=== PATIENT | female | born 1975 | race Caucasian/White ===

== ENCOUNTER 2020-09-14 07:01 | Observation (INO) | payer OTHER, SELFPAY ==
[2020-09-14] VITALS (12 sets, daily range): BP systolic 100–157; BP diastolic 58–85; PULSE 56–75; RESP 14–18; TEMP 35.5–36.5; O2SAT 97–100; BMI 23.3
--- NOTE | ~2020-09-14 | US_ITS ---
EXAMINATION: PELVIC ULTRASOUND CLINICAL INFORMATION: Right lower quadrant pain COMPARISON: Previous CT from earlier the same day and previous pelvic ultrasound October 2018 TECHNIQUE: Transabdominal and transvaginal pelvic ultrasound was performed. Transabdominal imaging of the right lower quadrant/appendix was also performed FINDINGS: The uterus is anteverted and measures 6.9 x 4 x 4.6 cm in dimension. There is a 5 mm hypoechoic lesion in the posterior uterine body questionable for a small fibroid. This was not appreciated on previous. Endometrial thickness is normal measuring 0.5 cm. The cervix is normal appearing. The right ovary is normal-appearing and measures 2.6 x 1.8 x 1.7 cm. The left ovary is normal-appearing and measures 2.3 x 1.6 x 1.8 cm. There is a 1.1 cm simple cyst or follicle in the left ovary. There is no fluid in the pelvis. There is a hypoechoic tubular structure in the right lower quadrant. This measures up to 1.2 cm in diameter. This is noncompressible. No increased vascularity is seen. The mechanical technologist reports the patient is tender over this region and ultrasound appearance is suggestive of acute appendicitis. No periappendiceal fluid is seen. US/US pelvic and transvaginal IMPRESSION: Normal pelvic ultrasound. Acute appendicitis. Findings were discussed with Dr. Mcgill by telephone on 09/14/2020 at 11:40 AM.
--- NOTE | ~2020-09-14 | CT_ITS ---
EXAMINATION: CT ABDOMEN AND PELVIS WITHOUT CONTRAST CLINICAL INFORMATION: Right-sided pain COMPARISON: Previous CT scan of the abdomen and pelvis most recent October 2018 and most recent pelvic ultrasound October 2018 TECHNIQUE: Multidetector volumetric imaging was performed from the superior aspect of the liver through the pubic symphysis. Sagittal and coronal reformatted images were obtained on the technologist's workstation. This CT examination was performed using dose optimization techniques as appropriate, variously including the following: *Automated exposure control *Adjustment of mA and/or kV according to patient size (this includes techniques or standardized protocols for targeted exams where dose is matched to indication/reason for exam; i.e. extremities or head) *Use of iterative reconstruction technique DLP: 490 mGy-cm FINDINGS: LUNG BASES: The visualized lung bases are unremarkable. LIVER, GALLBLADDER, AND BILIARY TREE: The liver is normal in size, shape, and attenuation. No focal hepatic lesion or biliary ductal dilatation is present. The gallbladder is unremarkable with no evidence of radiopaque gallstones, gallbladder wall thickening, or obvious pericholecystic inflammatory changes. PANCREAS: Unremarkable. SPLEEN: Unremarkable. ADRENAL GLANDS: Unremarkable. KIDNEYS AND URETERS: The kidneys are normal in size, shape, and attenuation. No hydronephrosis, hydroureter, or calculi seen. No perinephric stranding. BLADDER: Unremarkable. GASTROINTESTINAL TRACT: The small and large bowel are unremarkable. The appendix is unremarkable. ABDOMINAL WALL: There is a soft tissue nodule in the right lateral abdominal wall measuring 0.8 x 1.2 cm axial image 30 series 3. Similar to previous CT October 2018 and therefore probably benign. No hernia. LYMPH NODES: Normal. VASCULAR: Unremarkable. PELVIC VISCERA: Unremarkable. OSSEOUS STRUCTURES: There is degenerative disc disease at L5-S1. CT/CT abdomen pelvis wo con IMPRESSION: No acute findings. Stable nodule in the subcutaneous fat of the right lateral abdominal wall October 2018
--- NOTE | 2020-09-14 07:15 | ED.ABDPAIN ---
HPI - Abdominal Pain General Chief Complaint: Abdominal Pain Stated Complaint: abdominal pain since early skyler resendiz Time Seen by Provider: 09/14/20 07:15 Source: patient Mode of arrival: ambulatory Limitations: no limitations History of Present Illness MD elicited complaint: abdominal pain and flank pain Pertinent past history: other (ovarian cysts) Onset (ago): day(s) (started today 1am) Pain Consistency: constant Location: RLQ and R flank Severity: severe Quality: stabbing Radiation: RLQ Migration to: no migration Exacerbating factors: nothing Relieving factors: nothing Associated symptoms: nausea, vomiting and diarrhea Related Data Allergies Allergy/AdvReac Type Severity Reaction Status Date / Time No Known Allergies Allergy Unverified 12/25/19 15:59 Review of Systems Review of Systems Constitutional : No Weight loss, No Fever, No Chills ENT/Mouth : No sore throat, No Rhinorrhea Eyes: No Swelling, No Redness Cardiovascular : No Chest Pain, No SOB, NoEdema Respiratory : No Cough, No Sputum, No Wheezing Gastrointestinal : Positive Nausea, Positive Vomiting, positive Diarrhea, positive abdominal Pain, No Hematochezia, No Melena Genitourinary : No Dysuria, No Urinary Frequency, No Hematuria, No Urgency, pos hesitancy Musculoskeletal : No joint pain, No Myalgias, No Joint Swelling Skin : No Skin Lesions, No rash Neuro : No Weakness, No Numbness, No Dizziness, No Headache Psych : No Anxiety/Panic, No Depression Heme/Lymph: No Bruising, No Lymphadenopathy Endocrine : No Polyuria, No Polydipsia All other systems reviewed and are negative. Physical Exam Vital Signs: Vital Signs: Last Vital Signs Pulse 61 09/14/20 07:20 Resp 18 09/14/20 10:27 BP 157/70 H 09/14/20 07:20 Pulse Ox 98 09/14/20 07:20 Body Mass Index 23.3 Appearance: Alert. Oriented X3. in pain mild acute distress Eyes: Pupils equal, round and reactive to light. ENT: Pharynx normal. Neck: Normal inspection. Neck supple. CVS: Normal heart rate and rhythm. Pulses normal. Respiratory: No respiratory distress. Breath sounds normal. Abdomen: Soft and moderate ttp in RLQ no rebound or guarding Back: mild CVA ttp R side Skin: Skin warm and dry. pale skin color. Normal skin turgor. Extremities: No lower extremity edema. No calf ttp Neuro: Oriented X 3. No motor deficit. No sensory deficit. Course Course Course Narrative: urine, labs, CT scan negative, US at this ordered for ovarian cyst - no acute findings, need for repeat pain medications call from Radiology - on CT scan normal but on US appendicitis noncompressible enlarged at the base no WBC count HR in 60s sfebrile no signs of severe sepsis at this time 1136am call to surgery 1137am MDM - Abdominal Pain MDM Narrative Medical decision making narrative: 44 yo female with hx of ovarian cysts comes in with abrupt R sided abdominal pain and n/v - at this time overall abdomen has mild ttp suspect stone vs appendicits vs cyst though stone seems more likely, labs, UA, CT scan for acute findings in differential, IV morphine and toradol for pain dispo per results and findings. Differential Diagnosis Differential diagnosis: Likely abdominal pain, acute appendicitis, calculus of kidney, ovarian cyst and renal colic Lab Data Result diagrams: 09/14/20 07:31 09/14/20 07:31 Labs: Lab Results 09/14/20 09/14/20 09/14/20 Range/Units 07:31 07:31 08:42 WBC 10.0 (4.8-10.8) X10*3/uL RBC 4.41 (4.20-5.50) X10*6/uL Hgb 13.9 (12.0-16.0) g/dl Hct 40.6 (37-47) % MCV 92.1 (80-98) fL MCH 31.5 (27.0-33.0) pg MCHC 34.2 (31.0-35.0) g/dl RDW 12.8 (11.0-16.0) % Plt Count 272 (160-400) X10*3/uL MPV 9.1 L (9.4-12.3) fL Immature Gran % (Auto) 0.4 (0.0-0.4) % Neut % (Auto) 76.3 H (45-73) % Lymph % (Auto) 15.0 L (20-40) % [place] % (Auto) 6.1 (2-11) % Eos % (Auto) 1.8 (0-4) % Baso % (Auto) 0.4 (0-2) % Lymph # (Auto) 1.5 (1.2-4.9) X10*3/uL [place] # (Auto) 0.6 (0.1-1.2) X10*3/uL Eos # (Auto) 0.2 (0.0-0.4) X10*3/uL Baso # (Auto) 0.0 (0.0-0.2) X10*3/uL Abs Immat Gran (auto) 0.04 H (0.00-0.03) X10*3/uL Absolute Neuts (auto) 7.6 (2.0-8.3) X10*3/uL Absolute Nucleated RBC 0.000 (0.0-0.012) X10*3/uL Nucleated RBC % (auto) 0.0 (0.0-0.2) /100WBC Sodium 140 (135-145) mmol/L Potassium 4.2 (3.3-5.1) mmol/L Chloride 107 (96-108) mmol/L Carbon Dioxide 22 (22-29) mmol/L Anion Gap 15 (12-20) BUN 15 (9-16) mg/dL Creatinine 0.72 (0.5-1.4) mg/dL Estim Creat Clear Calc 95.3 Estimated GFR > 60 Random Glucose 107 (60-115) mg/dL Calcium 9.3 (8.4-10.2) mg/dL Magnesium 2.0 (1.6-2.6) mg/dL Total Bilirubin 0.9 (0.0-1.0) mg/dL Direct Bilirubin 0.3 (0.0-0.5) mg/dL AST 17 (5-31) U/L ALT 21 (0-31) U/L Alkaline Phosphatase 68 (39-117) U/L Total Protein 6.9 (6.5-8.0) g/dL Albumin 4.4 (3.5-5.0) g/dL Lipase 26 (8-78) U/L Urine Color YELLOW Urine Appearance CLEAR Urine pH 6.0 (5.0-8.0) Ur Specific [place] <= 1.005 (1.005-1.025) Urine Protein NEG (NEG-TRACE) MG/DL Urine Glucose (UA) NEG (NEG) MG/DL Urine Ketones NEG (NEG) MG/DL Urine Blood NEG (NEG) Urine Nitrite NEG (NEG) Ur Leukocyte Esterase NEG (NEG) Urine Test (NEGATIVE) 09/14/20 Range/Units 08:42 WBC (4.8-10.8) X10*3/uL RBC (4.20-5.50) X10*6/uL Hgb (12.0-16.0) g/dl Hct (37-47) % MCV (80-98) fL MCH (27.0-33.0) pg MCHC (31.0-35.0) g/dl RDW (11.0-16.0) % Plt Count (160-400) X10*3/uL MPV (9.4-12.3) fL Immature Gran % (Auto) (0.0-0.4) % Neut % (Auto) (45-73) % Lymph % (Auto) (20-40) % [place] % (Auto) (2-11) % Eos % (Auto) (0-4) % Baso % (Auto) (0-2) % Lymph # (Auto) (1.2-4.9) X10*3/uL [place] # (Auto) (0.1-1.2) X10*3/uL Eos # (Auto) (0.0-0.4) X10*3/uL Baso # (Auto) (0.0-0.2) X10*3/uL Abs Immat Gran (auto) (0.00-0.03) X10*3/uL Absolute Neuts (auto) (2.0-8.3) X10*3/uL Absolute Nucleated RBC (0.0-0.012) X10*3/uL Nucleated RBC % (auto) (0.0-0.2) /100WBC Sodium (135-145) mmol/L Potassium (3.3-5.1) mmol/L Chloride (96-108) mmol/L Carbon Dioxide (22-29) mmol/L Anion Gap (12-20) BUN (9-16) mg/dL Creatinine (0.5-1.4) mg/dL Estim Creat Clear Calc Estimated GFR Random Glucose (60-115) mg/dL Calcium (8.4-10.2) mg/dL Magnesium (1.6-2.6) mg/dL Total Bilirubin (0.0-1.0) mg/dL Direct Bilirubin (0.0-0.5) mg/dL AST (5-31) U/L ALT (0-31) U/L Alkaline Phosphatase (39-117) U/L Total Protein (6.5-8.0) g/dL Albumin (3.5-5.0) g/dL Lipase (8-78) U/L Urine Color Urine Appearance Urine pH (5.0-8.0) Ur Specific [place] (1.005-1.025) Urine Protein (NEG-TRACE) MG/DL Urine Glucose (UA) (NEG) MG/DL Urine Ketones (NEG) MG/DL Urine Blood (NEG) Urine Nitrite (NEG) Ur Leukocyte Esterase (NEG) Urine Test NEGATIVE (NEGATIVE) Critical Care Time Critical Care Time Critical Care Time: Yes Total Critical Care Time: 35 Attestation: repeat pain medications, call to surgery with medical consult, IV antibiotics I attest to this time spent taking care of the patient Discharge Plan Discharge Clinical Impression: Abdominal pain Qualifiers: Abdominal location: right lower quadrant Qualified Code(s): R10.31 - Right lower quadrant pain Acute appendicitis Qualifiers: Acute appendicitis type: with localized peritonitis Appendicitis gangrene presence: without gangrene Appendicitis perforation presence: without perforation Appendicitis abscess presence: without abscess Qualified Code(s): K35.30 - Acute appendicitis with localized peritonitis, without perforation or gangrene Patient Disposition: Admitted As Inpatient [facility] Past Medical History Attestation statement: The following information was validated with the patient. Medical History (Updated 09/14/20 @ 11:37 by Nikia Mcgill DO) Ovarian cyst Social History Social History (Updated 09/14/20 @ 07:34 by Nikia Mcgill DO) Alcohol intake: never Patient Tobacco Use Status: Never used Tobacco Use of substances other than those prescribed or required for medical reasons: No Advance Directives: No Advance Directives Information Provided: No Patient : No
[2020-09-14] MEDS: 0.9 % Sodium Chloride 1,000 ML 999 ML IVCONT (07:32)
[2020-09-14] MEDS: Ketorolac Tromethamine 30 MG/ML VIAL IVPUSH (07:33)
[2020-09-14] MEDS: Morphine Sulfate 4 MG/ML CARTRIDGE IVPUSH (07:33)
[2020-09-14] MEDS: ondansetron HCL 4 MG/2 ML VIAL IVPUSH (07:34)
[2020-09-14 07:35] LABS: MANUAL DIFF FLAG NO
[2020-09-14 07:36] LABS: Basophils Percent Auto 0.4 % (0-2); Eosinophils Absolute Auto 0.2 X10*3/uL (0.0-0.4); Eosinophils Percent Auto 1.8 % (0-4); Hematocrit 40.6 % (37-47); Hemoglobin 13.9 g/dl (12.0-16.0); Imm Gran Abs Auto 0.04 X10*3/uL (0.00-0.03); Imm Gran Pct Auto 0.4 % (0.0-0.4); Lymphocytes Absolute Auto 1.5 X10*3/uL (1.2-4.9); Mean Corpuscular HGB Conc 34.2 g/dl (31.0-35.0); Mean Corpuscular Hemoglobin 31.5 pg (27.0-33.0); Mean Corpuscular Volume 92.1 fL (80-98); Mean Platelet Volume 9.1 fL (9.4-12.3); Monocytes Absolute Auto 0.6 X10*3/uL (0.1-1.2); Monocytes Percent Auto 6.1 % (2-11); Neutrophils Absolute Auto 7.6 X10*3/uL (2.0-8.3); Neutrophils Percent Auto 76.3 % (45-73); Platelet Count 272 X10*3/uL (160-400); Red Blood Count 4.41 X10*6/uL (4.20-5.50); Red Cell Distribution Width 12.8 % (11.0-16.0)
[2020-09-14 08:03] LABS: Alanine Aminotransferase 21 U/L (0-31); Albumin Level 4.4 g/dL (3.5-5.0); Alkaline Phosphatase 68 U/L (39-117); Anion Gap 15 (12-20); Aspartate Amino Transferase 17 U/L (5-31); Bilirubin Direct 0.3 mg/dL (0.0-0.5); Bilirubin Total 0.9 mg/dL (0.0-1.0); Blood Urea Nitrogen 15 mg/dL (9-16); Calcium 9.3 mg/dL (8.4-10.2); Carbon Dioxide 22 mmol/L (22-29); Chloride 107 mmol/L (96-108); Creatinine Clr Calc Pharmacy 95.3; Estimated Glomerular Filt Rate > 60; Glucose Random 107 mg/dL (60-115); Lipase 26 U/L (8-78); Potassium 4.2 mmol/L (3.3-5.1); Sodium 140 mmol/L (135-145); Total Protein 6.9 g/dL (6.5-8.0)
[2020-09-14 08:49] LABS: Appearance Urine CLEAR; Color Urine YELLOW; Glucose Urine UA NEG (NEG); Leukocyte Esterase Urine NEG (NEG); Nitrite Urine NEG (NEG); Specific Gravity - Urine <= 1.005 (1.005-1.025); Urine Blood NEG (NEG); Urine Ketones NEG (NEG); Urine Protein NEG (NEG-TRACE)
[2020-09-14 09:40] LABS: UPreg QC Valid YES; Urine Pregnancy NEGATIVE (NEGATIVE)
[2020-09-14] MEDS: HYDROmorphone HCl 1 MG/ML SYRINGE IVPUSH (10:27)
[2020-09-14] MEDS: Piperacillin Sodium/Tazobactam 3.375 GM in 0.9 % Sodium Chloride 50 ML IV (11:46)
[2020-09-14] MEDS: LORazepam 2 MG/ML VIAL 1 MG IVPUSH (11:50)
--- NOTE | 2020-09-14 12:11 | HE.PHANOTE ---
Pharmacy Consult ? Medication Reconciliation Pharmacy has completed the medication reconciliation and there were no significant medication issues requiring provider attention. Josiane LarsenD
--- NOTE | 2020-09-14 13:48 | HO.ANESPROP2 ---
FORMERLY [facility], [facility] Active Problems Active Problems: All Active Problems (Updated 09/14/20 @ 11:37 by Nikia Mcgill DO) Abdominal pain (Acute) Acute appendicitis (Acute) Past Medical History Medical History Ovarian cyst Social History Social History Alcohol intake: never Patient Tobacco Use Status: Never used Tobacco Use of substances other than those prescribed or required for medical reasons: No Advance Directives: No Advance Directives Information Provided: No Patient : No Meds Allergies Allergy/AdvReac Type Severity Reaction Status Date / Time No Known Allergies Allergy Verified 09/14/20 13:45 Active Medications: Current Medications Generic Name Dose Route Start Last Admin Trade Name Freq PRN Reason Stop Dose Admin Cefotetan Disodium 2 gm/ 50 mls @ 100 mls/hr 09/14/20 13:38 Sodium Chloride IV 09/14/20 14:07 PREOP ONE Pharmacy Consult 1 each 09/14/20 11:36 Consult Rx Perform Med Rec MISCELLANE ONCE PRN Consult order Home Medications Medication Instructions Recorded Confirmed Last Taken Type cetirizine-pseudoephedrine 1 tab PO DAILY PRN 09/14/20 09/14/20 Unknown History [Zyrtec-D] Exam Exam Date and Time: September 14, 2020 1348 Height,Weight and Vital Signs: Height 5 ft 6 in Weight 65.771 kg Last Vital Signs Pulse 61 09/14/20 13:39 Resp 16 09/14/20 13:39 BP 131/64 09/14/20 13:39 Pulse Ox 98 09/14/20 13:39 Pertinent Lab Results Pertinent Lab Results: Laboratory Tests 09/14/20 09/14/20 09/14/20 07:31 07:31 08:42 WBC 10.0 RBC 4.41 Hgb 13.9 Hct 40.6 MCV 92.1 MCH 31.5 MCHC 34.2 RDW 12.8 Plt Count 272 MPV 9.1 L Immature Gran % (Auto) 0.4 Neut % (Auto) 76.3 H Lymph % (Auto) 15.0 L [place] % (Auto) 6.1 Eos % (Auto) 1.8 Baso % (Auto) 0.4 Lymph # (Auto) 1.5 [place] # (Auto) 0.6 Eos # (Auto) 0.2 Baso # (Auto) 0.0 Abs Immat Gran (auto) 0.04 H Absolute Neuts (auto) 7.6 Absolute Nucleated RBC 0.000 Nucleated RBC % (auto) 0.0 Sodium 140 Potassium 4.2 Chloride 107 Carbon Dioxide 22 Anion Gap 15 BUN 15 Creatinine 0.72 Estim Creat Clear Calc 95.3 Estimated GFR > 60 Random Glucose 107 Calcium 9.3 Magnesium 2.0 Total Bilirubin 0.9 Direct Bilirubin 0.3 AST 17 ALT 21 Alkaline Phosphatase 68 Total Protein 6.9 Albumin 4.4 Lipase 26 Urine Color YELLOW Urine Appearance CLEAR Urine pH 6.0 Ur Specific [place] <= 1.005 Urine Protein NEG Urine Glucose (UA) NEG Urine Ketones NEG Urine Blood NEG Urine Nitrite NEG Ur Leukocyte Esterase NEG Urine Test 09/14/20 08:42 WBC RBC Hgb Hct MCV MCH MCHC RDW Plt Count MPV Immature Gran % (Auto) Neut % (Auto) Lymph % (Auto) [place] % (Auto) Eos % (Auto) Baso % (Auto) Lymph # (Auto) [place] # (Auto) Eos # (Auto) Baso # (Auto) Abs Immat Gran (auto) Absolute Neuts (auto) Absolute Nucleated RBC Nucleated RBC % (auto) Sodium Potassium Chloride Carbon Dioxide Anion Gap BUN Creatinine Estim Creat Clear Calc Estimated GFR Random Glucose Calcium Magnesium Total Bilirubin Direct Bilirubin AST ALT Alkaline Phosphatase Total Protein Albumin Lipase Urine Color Urine Appearance Urine pH Ur Specific [place] Urine Protein Urine Glucose (UA) Urine Ketones Urine Blood Urine Nitrite Ur Leukocyte Esterase Urine Test NEGATIVE Airway Mallampati Class: II TM Dist: >3cm Neck ROM: Full Assessment and Plan Assessment Anesthesia Assessment: Anesthesia Plan Discussed and Chart Reviewed Final Anesthetic Review NPO: Yes ASA Class: I and Emergency Final Preanesthetic Review: No Changes in Pt Med Stat, Meds/Allgs Chart Reviewed, Consent Obtained/Reviewed and Anes Risks/Benef Reviewed Patient Risk: Low Procedure Risk: Low Assessment/Block/Sedation in SS: Assess/Block/Sedation- Anesthetic Plan Anesthetic Plan: GA Disposition: Standard PACU
[2020-09-14 13:56] LABS: COVID-19 Test Negative (Negative)
--- NOTE | 2020-09-14 13:56 | P.HPGS_ITS ---
History of Present Illness History of Present Illness Date of Service: 09/14/20 Chief complaint: abdominal pain since early skyler resendiz Narrative: Josefina Ty is a 44 year old female otherwise healthy, who came to the emergency room this morning because of right lower quadrant pain. She says this woke her up from sleep at around 01:30 in the morning earlier today. She said this had persisted throughout the rest of the morning. She had some nausea and 1 small episode of vomiting prior to coming to the ER. She denies any diarrhea or constipation or any other GI complaints. She denies any previous similar episodes in the past She denies any fever or chills or dysuria. She had a CAT scan done in the ER which did not reveal any acute intra-abdominal process. However, an ultrasound was done which showed that the appendix was inflamed and edematous and she was tender right on the area of the appendix. Review of Systems Constitutional: Constitutional: Denies chills and Denies fever(s) Cardiovascular: Cardiovascular: Denies chest pain, Denies dyspnea and Denies dyspnea on exertion Respiratory: Respiratory: Denies cough, Denies dyspnea and Denies dyspnea on exertion Gastrointestinal: Gastrointestinal: Denies hematochezia and Denies change in bowel habits Genitourinary: Genitourinary: Denies hematuria Musculoskeletal: Musculoskeletal: Denies back pain and Denies limited range of motion Neurologic: Denies focal weakness and Denies convulsions Psychiatric: Psychiatric: Denies depression and Denies mood swings PMFSH Past Medical History Medical History Ovarian cyst Social History Social History Household Members: Family Housing: House Alcohol intake: never Patient Tobacco Use Status: Never used Tobacco Substance Use Type: Marijuana Meds Allergies Allergy/AdvReac Type Severity Reaction Status Date / Time No Known Allergies Allergy Verified 09/14/20 13:45 Active Medications: Current Medications Generic Name Dose Route Start Last Admin Trade Name Freq PRN Reason Stop Dose Admin Acetaminophen 650 mg 09/14/20 13:49 Acetaminophen 325 Mg Tablet PO ONCE PRN Pain, Mild (Pain Scale 1-3) Fentanyl 50 mcg 09/14/20 13:49 Fentanyl Citrate/Pf 100 Mcg/2 Ml Vial IVPUSH Q5M PRN Pain, Severe (Pain Scale 7-10) Cefotetan Disodium 2 gm/ 50 mls @ 100 mls/hr 09/14/20 13:38 Sodium Chloride IV 09/14/20 14:07 PREOP ONE Ondansetron HCl 4 mg 09/14/20 13:49 Ondansetron Hcl 4 Mg/2 Ml Vial IVPUSH ONCE PRN Nausea and Vomiting Oxycodone HCl 5 mg 09/14/20 13:49 Oxycodone Hcl Immed Release 5 Mg Tablet PO ONCE PRN Pain, Severe (Pain Scale 7-10) Pharmacy Consult 1 each 09/14/20 11:36 Consult Rx Perform Med Rec MISCELLANE ONCE PRN Consult order Home Medications Medication Instructions Recorded Confirmed Last Taken Type cetirizine-pseudoephedrine 1 tab PO DAILY PRN 09/14/20 09/14/20 Unknown History [Zyrtec-D] Physical Exam Vital Signs: Vital Signs: Last Vital Signs Pulse 61 09/14/20 13:39 Resp 16 09/14/20 13:39 BP 131/64 09/14/20 13:39 Pulse Ox 98 09/14/20 13:39 Body Mass Index 23.3 Const: General: comfortable and no acute distress Orientation/consciousness: patient oriented x3 Neck: Neck: Yes no lymphadenopathy Resp: Auscultation: clear to auscultation bilaterally Cardio: Rhythm: regular rhythm GI: Other: Has direct tenderness on the right lower quadrant Palpation (GI): Soft to palpation and no guarding Neuro: General: patient oriented x3 Results Results Labs: Short CBC 09/14/20 Range/Units 07:31 WBC 10.0 (4.8-10.8) X10*3/uL Hgb 13.9 (12.0-16.0) g/dl Hct 40.6 (37-47) % Plt Count 272 (160-400) X10*3/uL BMP 09/14/20 07:31 Sodium 140 Potassium 4.2 Chloride 107 Carbon Dioxide 22 BUN 15 Creatinine 0.72 Calcium 9.3 Liver Function 09/14/20 Range/Units 07:31 Total Bilirubin 0.9 (0.0-1.0) mg/dL Direct Bilirubin 0.3 (0.0-0.5) mg/dL AST 17 (5-31) U/L ALT 21 (0-31) U/L Alkaline Phosphatase 68 (39-117) U/L Albumin 4.4 (3.5-5.0) g/dL Urine 09/14/20 09/14/20 Range/Units 08:42 08:42 Urine Color YELLOW Urine Appearance CLEAR Urine pH 6.0 (5.0-8.0) Ur Specific [place] <= 1.005 (1.005-1.025) Urine Protein NEG (NEG-TRACE) MG/DL Urine Glucose (UA) NEG (NEG) MG/DL Urine Test NEGATIVE (NEGATIVE) Abdomen CT scan report/results: report reviewed and image reviewed CT scan - pelvis: report reviewed and image reviewed Abdominal ultrasound report/results: report reviewed and image reviewed US - pelvic: report reviewed and image reviewed Assessment and Plan (1) Acute appendicitis: Qualifiers: Acute appendicitis type: with localized peritonitis Appendicitis abscess presence: without abscess Appendicitis gangrene presence: without gangrene Appendicitis perforation presence: without perforation Qualified Code(s): K35.30 - Acute appendicitis with localized peritonitis, without perforation or gangrene Status: Acute She remains tender on the right lower quadrant. I explained to her the findings on both the CT scan and ultrasound. In view of this clinical diagnosis of acute appendicitis, explained to her the option of proceeding with laparoscopic appendectomy with possible open appendectomy. I explained to her the technique of this procedure. I reviewed the risks extensively including but not limited to bleeding, infections, bowel injury, injury to the urinary tract, staple line leak, inherent risks of anesthesia, as well as the benefits and alternatives. She understood and wanted to proceed. Her Dagoberto was with her during the entire discussion. They were also made to understand that there was a small chance that the appendix may be normal on pathologic examination. I have reviewed the CAT scan and ultrasound images with the radiologist Dr. Pereira. Procedures Date of Service Date of Service: 09/14/20
--- NOTE | 2020-09-14 15:56 | PM.OP ---
Brief Operative Note Date of Service: 09/14/20 Pre-op diagnosis: Acute appendicitis Post-op diagnosis: other (Grossly normal looking appendix) Procedure: Laparoscopic appendectomy Surgeon: Robin Portillo MD Anesthesia: GETA Was an Virtualization Engineer used for this Procedure?: No Estimated blood loss (mL): 5 Pathology: other (Appendix) Condition: stable Disposition: PACU
--- NOTE | 2020-09-14 15:57 | P.OP_ITS ---
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 Her CAT scan did not reveal any acute intra-abdominal pathology but her ultrasound was suggestive of acute appendicitis. She was tender in right lower quadrant on examination. She did not have any leukocytosis. I reviewed her images with the radiologist. She felt that her ultrasound was convincing for acute appendicitis. I reviewed these with the patient and the decision was to proceed with laparoscopic appendectomy. Her was with her during the discussion. She was brought to the operating room placed supine on table under general anesthesia via endotracheal tube. A Robles catheter was inserted. The abdomen was prepped and draped in the usual sterile fashion. A surgical time-out was done. The patient received a 10 2 g IV preoperatively. I made a short infraumbilical incision using a blade 15. This was carried down through the full-thickness of the skin and subcutaneous fat down to the fascia. The fascia was incised. The peritoneum was entered. Through this incision a Shiraz port was introduced. Pneumoperitoneum was introduced to a pressure of 15 mm hg. From here on the rest of procedure was done under vision with the laparoscope using a 10 mm angled scope. With laparoscopic visualization I inserted a 10 mm port through a small incision in the left lower quadrant and a 5 mm port through a small stab incision in the suprapubic margin. Graspers were placed through these working ports. The patient was placed in a head-down and [id number] position. I reflected the omentum the small bowel loops away from the right lower quadrant. I could see the cecum clearly. By tracing the taenia, I was able to visualize the appendix. This did not appear to be inflamed and was supple. I put the graspers on the mid part of the appendix to put this on stretch. I dissected the base of the appendix to create a mesenteric window using a [place] dissector. I then positioned an Endo-MELINA 30 mm stapler across the base and this was fired. The appendix was therefore transected. I used the LigaSure to divide the mesoappendix. The appendix was completely and was retrieved through an endobag through the left lower quadrant incision. I reinserted all ports and re-insufflated. I examined the pelvis and the right lower quadrant. There was no other pathology that could be identified. The uterus appeared a little bit erythematous however. There was no inflammatory process in the ovary or on the small bowel loops.The cecum appeared normal. I then examined for hemostasis. Once hemostasis was ensured I proceeded to position the omentum to the right lower quadrant. I then desufflated through the port sites. I removed all ports under vision with laparoscope and the Shiraz port was removed last. The fascia of the umbilical incision was closed with a [id number] Dexon 0 stitch. Skin closure was achieved on all incisions using Dexon 4-0 subcuticular sutures. Steri-Strips and dressings were applied. All incisions were infiltrated with Marcaine 0.5% for postop analgesia and the procedure was completed The patient tolerated the procedure well. There were no complications noted. Initial and final counts of sponges and instruments were correct. Estimated blood loss about 5 cc. The patient was extubated without difficulty and transferred to the recovery room with stable vital signs.
[2020-09-14] MEDS: Lactated Ringers 1,000 ML 80 ML IVCONT (17:15)
[2020-09-14] MEDS: 0.9 % Sodium Chloride Flush 3 ML SYRINGE IVFLUSH (17:16)
--- NOTE | 2020-09-14 17:30 | PM.EVENT ---
Event Note Date of Service: 09/14/20 Event Note: seen postop - underwent uneventful lap appy earlier looks comfortable good pain control abd soft stable VS continue pain mgt likely home ai AM updated at bedside
[2020-09-14] MEDS: Morphine Sulfate 2 MG/ML CARTRIDGE IVPUSH (18:32)
[2020-09-15 04:00] VITALS: BP 117/69; PULSE 70; RESP 16; TEMP 36.2; O2SAT 98
[2020-09-15] MEDS: oxyCODONE HCl Immed Release 5 MG TABLET PO (04:32)
[2020-09-15] MEDS: Lactated Ringers 1,000 ML 80 ML IVCONT (05:51)
--- NOTE | 2020-09-15 07:46 | PM.PNGS ---
Subjective Subjective Date of Service: 09/15/20 Interval history: feels much better says she had a good night pain much improved Physical Exam Vital Signs: Vital Signs: Last Vital Signs Temp 97.1 F 09/15/20 04:00 Pulse 70 09/15/20 04:00 Resp 16 09/15/20 04:00 BP 117/69 09/15/20 04:00 Pulse Ox 98 09/15/20 04:00 Body Mass Index 23.3 Const: General: comfortable, no acute distress and alert Resp: Effort & Inspection: normal respiratory effort GI: Other: dressings dry Inspection: No distended Palpation (GI): Soft to palpation, not firm and no guarding Progress Note: A&P Assessment and plan (1) Acute appendicitis: Status: Acute Assessment and Plan: S/P lap appendectomy doing very well advance diet likely home today appendix appeared grossly normal dc instructions given ffup in office Fall Risk Details Current Medications: Current Medications Generic Name Dose Route Start Last Admin Trade Name Freq PRN Reason Stop Dose Admin Acetaminophen 650 mg 09/14/20 13:49 Acetaminophen 325 Mg Tablet PO ONCE PRN Pain, Mild (Pain Scale 1-3) Acetaminophen 650 mg 09/14/20 14:46 Acetaminophen 325 Mg Tablet PO ONCE PRN Pain, Mild (Pain Scale 1-3) Fentanyl 50 mcg 09/14/20 13:49 Fentanyl Citrate/Pf 100 Mcg/2 Ml Vial IVPUSH Q5M PRN Pain, Severe (Pain Scale 7-10) Hydromorphone HCl 0.5 mg 09/14/20 14:46 Hydromorphone Hcl 0.5 Mg/0.5 Ml Syringe IVPUSH Q5M PRN Pain, Severe (Pain Scale 7-10) Acetaminophen 1,000 mg in 100 mls @ 400 mls/hr 09/14/20 15:45 09/15/20 05:36 Ofirmev IV 09/15/20 09:59 Infused Q6H HANK Infusion Lactated Ringer's 1,000 mls @ 80 mls/hr 09/14/20 16:49 09/15/20 05:51 Lr IVCONT 80 mls/hr .[id number] HANK Administration Promethazine HCl 6.25 mg/ 50.25 mls @ 201 mls/hr 09/14/20 18:09 09/14/20 19:08 Sodium Chloride IV Infused Q6H PRN Infusion Nausea Morphine Sulfate 2 mg 09/14/20 15:39 09/14/20 18:32 Morphine Sulfate 2 Mg/Ml Cartridge IVPUSH 2 mg Q3H PRN Administration Pain, Severe (Pain Scale 7-10) Ondansetron HCl 4 mg 09/14/20 13:49 Ondansetron Hcl 4 Mg/2 Ml Vial IVPUSH ONCE PRN Nausea and Vomiting Ondansetron HCl 4 mg 09/14/20 14:46 Ondansetron Hcl 4 Mg/2 Ml Vial IVPUSH ONCE PRN Nausea and Vomiting Oxycodone HCl 5 mg 09/14/20 14:46 Oxycodone Hcl Immed Release 5 Mg Tablet PO ONCE PRN Pain, Severe (Pain Scale 7-10) Oxycodone HCl 10 mg 09/14/20 15:39 Oxycodone Hcl Immed Release 5 Mg Tablet PO Q4H PRN Pain, Moderate (Pain Scale 4-6 Pharmacy Consult 1 each 09/14/20 11:36 Consult Rx Perform Med Rec MISCELLANE ONCE PRN Consult order Sodium Chloride 3 ml 09/14/20 16:00 09/15/20 00:10 0.9 % Sodium Chloride Flush 3 Ml Syringe IVFLUSH Not Given QSHIFT HANK Time Spent With Patient Time: Total time spent is greater than 50% in coordination of care (as documented) at patient's floor/unit and/or counseling patient: Time with patient: 15 - 24 minutes Procedures Date of Service Date of Service: 09/15/20
[2020-09-15 07:48] VITALS: BP 140/73; PULSE 62; RESP 17; TEMP 36.8; O2SAT 99
--- NOTE | 2020-09-15 09:17 | MHC.CM.PN ---
PATIENT LIVES WITH HER SPOUSE. SHE IS FULLY INDEPENDENT WITH ALL ADLS. NO DME OR VNA SERVICES. SHE EXPECTS TO RETURN HOME TODAY WITH NO NEED FOR SERVICES. SPOUSE WILL PROVIDE TRANSPORT. PATIENT GIVEN PROVIDER LIST FOR [facility] PER REQUEST. HERNANDES 09/15 IN CHART.
--- NOTE | 2020-09-15 12:16 | MHC.CM.PN ---
PATIENT WAS DISCHARGED HOME WITH NO NEED FOR SERVICES. SPOUSE TRANSPORTED
--- NOTE | 2020-09-15 14:20 | HO.POSTANES ---
Post Anesthesia Evaluation Post Anesthesia Evaluation Vital Signs: Vital Signs Temp Pulse Resp BP Pulse Ox 09/15/20 07:48 98.2 F 62 17 140/73 H 99 09/15/20 04:00 97.1 F 70 16 117/69 98 Anesthesia: General Endotracheal-GETA Mental Status: Awake Pain Control: Satisfactory Nausea/Vomiting: None Hydration: Adequate Anesthesia-Related Issues: No Anes. Related Issues
--- NOTE | 2020-09-16 14:24 | P.DS_ITS ---
DS: Providers Provider Date of Service: 09/15/20 Date of admission: 09/14/20 13:37 Primary care physician: Missael Medley MD DS: Diagnosis Discharge Diagnosis (1) Acute appendicitis: Status: Acute Problem details: [age] year female who came to the emergency room on the alteration hand of 09/14/2020 because of right lower quadrant pain. She had no leukocytosis but she had an ultrasound which was reviewed with the radiologist, and was suggestive of acute appendicitis. She was therefore brought to the operating and she underwent laparoscopic appendectomy that same day. This was uneventful. She was on clear liquids postoperatively and this was advanced the following day. Continue to tolerate this. She had good pain control. She was therefore discharged on postop day 1., on 09/15/2020. DS: Medications Discharge Medications Home Medications: Home Medications Medication Instructions Recorded Confirmed cetirizine-pseudoephedrine 1 tab PO DAILY PRN 09/14/20 09/14/20 [Zyrtec-D] Previous Rx's Medication Instructions Recorded ibuprofen 600 mg PO Q6H PRN #30 tab 09/14/20 oxycodone-acetaminophen [Percocet] 1 - 2 tab PO Q4-6H PRN #30 tab 09/14/20 DS: Summary Time Spent with Patient Time attestation: Total time spent providing and/or coordinating discharge services: Discharge coordination time: Less than 30 minutes Quality: Stroke Does the patient have a stroke diagnosis?: No Physical Exam Vital Signs: Vital Signs: Last Vital Signs Temp 98.2 F 09/15/20 07:48 Pulse 62 09/15/20 07:48 Resp 17 09/15/20 07:48 BP 140/73 H 09/15/20 07:48 Pulse Ox 99 09/15/20 07:48 Body Mass Index 23.3 Const: General: comfortable and no acute distress Orientation/consciousness: patient oriented x3 Neck: Neck: Yes no lymphadenopathy Resp: Auscultation: clear to auscultation bilaterally Cardio: Rhythm: regular rhythm GI: Other: Incisions clean and dry Palpation (GI): Soft to palpation, nontender and no guarding Neuro: General: patient oriented x3 DS: Data Data Completed and Pending Completed studies during hospitalization [Text1]: Pending at discharge 09/14/20 15:14 Surgical [PTH] Routine Discharge Plan Discharge Patient Disposition: Home, Self-Care Referrals: Missael Medley MD [Primary Care Provider] - 1 Week Robin Portillo MD [Physician] - 1 Week Discharge Medications: New oxycodone-acetaminophen [Percocet] 5-325 mg tablet 1 - 2 tab PO Q4-6H PRN (Reason: pain) Qty: 30 RF: 0 ibuprofen 600 mg tablet 600 mg PO Q6H PRN (Reason: pain) Qty: 30 RF: 0 Continued cetirizine-pseudoephedrine [Zyrtec-D] 5-120 mg Tablet Extended Release 12 Hr 1 tab PO DAILY PRN (Reason: Allergy Symptoms) RF: 0 Discharge Orders: Discharge Order (Routine); Ordered 09/15/20 Ordered By: Robin Portillo Activity on Discharge: No heavy lifting Stand Alone Forms: Patient Portal Discharge page Activity Restrictions/Additional Instructions: If the incision area is tender, you may apply an ice pack for short intervals (No more than 20 minutes on, followed by at least 20 minutes off). Do not apply heat. Do not use creams, lotions, or topical antibiotics unless instructed to do so by your surgeon. These can cause infection or allergic reaction. OK to shower OK to change dressings with BandAids No lifting more than 15 lb No strenuous activities Call the office for follow-up in 2 weeks - with Dr. Portillo Call Your Doctor If: -Your temperature exceeds 101.5? F -You experience excessive pain or swelling -You have an unexpected reaction to medication -You have excessive bleeding -You experience continued vomiting/nausea -Your incision begins to separate -Your incision shows signs of infection such as increased redness, swe lling, excessive pain, drainage (light blood or clear fluid is normal) or heat Care Plan Goals: post op pain management Health Concerns: pain control Plan of Treatment: oral pain meds no lifting more than 20 lbs ffup in office Assessment: doing well postop Discharge Date/Time: 09/15/20 11:43
== END 2020-09-15 11:43 | disposition home or self-care (01) ==
LOC: HO.ED 13:35 → HO.S3 15:45 → HO.SSSA 15:45
PROVIDERS: Admitting Provider Surgery; Emergency Provider Emergency Medicine; PCP Internal Medicine; Visit Provider Surgery
PROC: 0DTJ4ZZ Resection of Appendix, Percutaneous Endoscopic Approach (ICD-10-PCS; CPT 44970; principal; 2020-09-14 13:50)
DX: K35.30 Acute appendicitis with localized peritonitis, without perforation or gangrene (principal); R10.31 Right lower quadrant pain; N83.209 Unspecified ovarian cyst, unspecified side; Z20.822 Contact with and (suspected) exposure to COVID-19; Z79.899 Other long term (current) drug therapy
CPT/HCPCS: 44970; 36415; 74176; 76830; 76856; 80048; 80076; 81003; 81025; 83690; 83735; 85025; 87635; 88304; 96361; 96365; 96367; 96375; 99024; 99285; 99291; J0131; J1100; J1170; J1885; J2060; J2250; J2270; J2405; J2543; J2550; J3010

== ENCOUNTER → 2020-09-27 12:57 | Outpatient (BNVA) | payer OTHER, SELFPAY | PROVIDERS: PCP Internal Medicine; Visit Provider Surgery ==

== ENCOUNTER 2020-10-21 14:34 | Outpatient (REF) | payer OTHER, SELFPAY ==
--- NOTE | ~2020-10-21 | US_ITS ---
EXAMINATION: US EXTREMITY NONVASCULAR, LEFT CLINICAL INFORMATION: IV line stuck in the left lateral forearm. COMPARISON: None TECHNIQUE: Limited imaging through the left forearm on the radial side was performed. FINDINGS: There is no radiopaque foreign body seen along the left forearm where a previous IV needlestick was noted. No soft tissue mass or abscess. US/US extremity nonvascular IMPRESSION: No radiopaque foreign body, mass or abscess seen along the left forearm.
== END 2020-10-21 14:35 | disposition home or self-care (01) ==
LOC: HO.US 14:34
PROVIDERS: PCP Physician Assistant; Visit Provider Physician Assistant
DX: Z18.9 Retained foreign body fragments, unspecified material (principal)
CPT/HCPCS: 76882

== ENCOUNTER 2022-04-25 15:21 | Outpatient (REF) | payer OTHER, SELFPAY ==
[2022-04-25 17:49] LABS: MANUAL DIFF FLAG NO
[2022-04-25 18:01] LABS: Basophils Absolute Auto 0.1 X10*3/uL (0.0-0.2); Basophils Percent Auto 0.8 % (0-2); Eosinophils Absolute Auto 0.3 X10*3/uL (0.0-0.4); Eosinophils Percent Auto 3.2 % (0-4); Hemoglobin 13.1 g/dl (12.0-16.0); Imm Gran Abs Auto 0.03 X10*3/uL (0.00-0.03); Imm Gran Pct Auto 0.4 % (0.0-0.4); Lymphocytes Absolute Auto 2.5 X10*3/uL (1.2-4.9); Lymphocytes Percent Auto 31.7 % (20-40); Mean Corpuscular HGB Conc 33.6 g/dl (31.0-35.0); Mean Corpuscular Hemoglobin 31.3 pg (27.0-33.0); Mean Corpuscular Volume 93.3 fL (80.0-98.0); Mean Platelet Volume 9.7 fL (9.4-12.3); Monocytes Absolute Auto 0.8 X10*3/uL (0.1-1.2); Monocytes Percent Auto 9.5 % (2-11); Neutrophils Absolute Auto 4.3 x10*3/uL (2.0-8.3); Neutrophils Percent Auto 54.4 % (45-73); Platelet Count 339 X10*3/uL (160-400); Red Blood Count 4.18 X10*6/uL (4.20-5.50); Red Cell Distribution Width 13.2 % (11.0-16.0); White Blood Count 7.9 X10*3/uL (4.8-10.8)
[2022-04-25 18:38] LABS: Alanine Aminotransferase 15 U/L (0-31); Albumin Level 4.3 g/dL (3.5-5.0); Alkaline Phosphatase 76 U/L (39-117); Anion Gap 13 (12-20); Aspartate Amino Transferase 15 U/L (5-31); Bilirubin Total 0.3 mg/dL (0.0-1.0); Blood Urea Nitrogen 15 mg/dL (9-16); Calcium 9.2 mg/dL (8.4-10.2); Carbon Dioxide 26 mmol/L (22-29); Chloride 104 mmol/L (96-108); Estimated Glomerular Filt Rate > 60; Glucose Random 84 mg/dL (60-115); Iron 78 mcg/dL (30-160); Percent Iron Saturation 22 % (15-50); Sodium 139 mmol/L (135-145); Total Iron Binding Capacity 354 mcg/dL (228-428); Total Protein 6.8 g/dL (6.5-8.0); Unsaturated Iron Binding 276 ug/dL
[2022-04-25 18:56] LABS: Ferritin 27 ng/mL (10-250); Free T4 (Free Thyroxine) 0.92 ng/dL (0.71-1.85); Thyroid Stimulating Hormone 4.19 uIU/mL (0.32-4.0); Vitamin D 25-OH Total 19.8 ng/mL (>30)
[2022-04-25 19:12] LABS: Folate 14.9 ng/mL (> or = 4.0); Vitamin B12 255 pg/mL (200-900)
[2022-04-27 17:49] LABS: Follicle Stimulating Hormone 16.9 mIU/mL; Lutenizing Hormone 13.8 mIU/mL
[2022-04-30 14:43] LABS: Testosterone, Total 21 ng/dL (2-45)
[2022-05-04 22:09] LABS: Estradiol Free 2.42 pg/mL; Estradiol, Ultrasensitive 178 pg/mL
== END 2022-04-25 15:22 | disposition home or self-care (01) ==
LOC: HO.MANLDS 15:21
PROVIDERS: Visit Provider Physician Assistant
DX: Z00.00 Encounter for general adult medical examination without abnormal findings (principal); N94.4 Primary dysmenorrhea
CPT/HCPCS: 36415; 80053; 82306; 82607; 82670; 82681; 82728; 82746; 83001; 83002; 83540; 84144; 84146; 84403; 84439; 84443; 85025

== ENCOUNTER 2022-05-05 13:21 | Outpatient (REF) | payer OTHER, SELFPAY ==
--- NOTE | ~2022-05-05 | MM_ITS ---
EXAMINATION: MM SCREENING DIGITAL BREAST TOMOSYNTHESIS, BILATERAL CLINICAL INFORMATION: Screening. Asymptomatic. Age 46. No prior breast imaging. No known family history breast cancer. The lifetime risk of breast cancer based on the Tyrer-Cuzick Model is 12%. COMPARISON: None (current study represents initial baseline exam). TECHNIQUE: Digital breast tomosynthesis is performed in both the craniocaudal and mediolateral oblique views along with computer-aided detection (CAD). Synthesized 2D images are generated from the tomosynthesis. Additional right CC view is provided. FINDINGS: There are scattered areas of fibroglandular density (ACR BI-RADS breast composition Category b). There are no significant masses, abnormal calcifications, or other abnormalities. Breast tissue composition borders on heterogeneously dense. No architectural abnormality. The axilla are unremarkable. MM/MM tomosynthesis screening BI IMPRESSION: No mammographic evidence of malignancy. ASSESSMENT: BI-RADS 1: Negative RECOMMENDATION: Routine annual mammography screening. This patient's information was entered into a reminder system with a target due date for their next mammogram.
--- NOTE | ~2022-05-05 | XR_ITS ---
EXAMINATION: XR KNEE, RIGHT CLINICAL INFORMATION: Pain. COMPARISON: None TECHNIQUE: AP, lateral, tunnel, and sunrise views of the right knee. FINDINGS: Bones and soft tissues are normal. No fracture or dislocation is seen. There is a minimal joint effusion. Alignment is anatomic. Joint spaces are well maintained. No abnormal soft tissue calcification. XR/XR knee RT 3V IMPRESSION: 1. No right knee fracture, dislocation or unusual degenerative change is seen. 2. There is a minimal right knee joint effusion.
== END 2022-05-05 13:22 | disposition home or self-care (01) ==
LOC: HO.MAMMO 13:21
PROVIDERS: PCP Physician Assistant; Visit Provider Physician Assistant
DX: Z12.31 Encounter for screening mammogram for malignant neoplasm of breast (principal); M25.561 Pain in right knee
CPT/HCPCS: 73562; 77063; 77067

== ENCOUNTER 2022-05-31 09:01 | Outpatient (REF) | payer OTHER, SELFPAY ==
[2022-05-31 13:00] LABS: Free T4 (Free Thyroxine) 1.04 ng/dL (0.71-1.85); Vitamin D 25-OH Total 23.9 ng/mL (>30)
== END 2022-05-31 09:02 | disposition home or self-care (01) ==
LOC: HO.MANLDS 09:01
PROVIDERS: Visit Provider Physician Assistant
DX: Z00.00 Encounter for general adult medical examination without abnormal findings (principal); R53.83 Other fatigue; E55.9 Vitamin D deficiency, unspecified; R23.9 Unspecified skin changes
CPT/HCPCS: 36415; 82306; 84439; 84443

== ENCOUNTER 2022-08-11 07:43 | Outpatient (REF) | payer OTHER, SELFPAY ==
--- NOTE | ~2022-08-11 | XR_ITS ---
EXAMINATION: XR KNEE AP STANDING CLINICAL INFORMATION: Knee pain. COMPARISON: None available. TECHNIQUE: AP bilateral standing view of the knees was obtained. FINDINGS: There is mild reduction in the medial compartment joint space. The lateral compartment joint space is somewhat preserved. No bony erosive changes or soft tissue swelling. No lytic or sclerotic process seen. XR/XR knee standing BI IMPRESSION: Mild degenerative changes medial compartment both knees. No visible acute fracture or dislocation seen.
== END 2022-08-11 07:44 | disposition home or self-care (01) ==
LOC: HO.HOSX 07:43
PROVIDERS: Visit Provider Physician Assistant
DX: M25.561 Pain in right knee (principal); M25.461 Effusion, right knee; M25.562 Pain in left knee
CPT/HCPCS: 73565

== ENCOUNTER 2022-09-20 14:09 | Outpatient (REF) | payer OTHER, SELFPAY ==
[2022-09-26 22:13] LABS: HPV mRNA E6/E7 rflx Not Detected (Not Detected)
== END 2022-09-20 14:10 | disposition home or self-care (01) ==
LOC: HO.LNP 14:09
PROVIDERS: PCP Internal Medicine; Visit Provider Obstetrics & Gynecology
DX: Z01.419 Encounter for gynecological examination (general) (routine) without abnormal findings (principal); Z11.51 Encounter for screening for human papillomavirus (HPV); N93.9 Abnormal uterine and vaginal bleeding, unspecified
CPT/HCPCS: 87624; 88142

== ENCOUNTER 2022-09-20 14:46 | Outpatient (REF) | payer OTHER, SELFPAY ==
[2022-09-20 15:46] LABS: Hematocrit 38.3 % (37.0-47.0); Hemoglobin 12.8 g/dl (12.0-16.0); Mean Corpuscular HGB Conc 33.4 g/dl (31.0-35.0); Mean Corpuscular Hemoglobin 30.6 pg (27.0-33.0); Mean Corpuscular Volume 91.6 fL (80.0-98.0); Mean Platelet Volume 9.4 fL (9.4-12.3); Platelet Count 324 X10*3/uL (160-400); Red Blood Count 4.18 X10*6/uL (4.20-5.50); Red Cell Distribution Width 12.4 % (11.0-16.0); White Blood Count 7.8 X10*3/uL (4.8-10.8)
[2022-09-20 16:19] LABS: HCG Quantitative < 2 mIU/mL
[2022-09-20 16:33] LABS: TSH reflex Free T4 0.32 uIU/mL (0.32-4.0)
[2022-09-21 01:30] LABS: CT PCR NOT DETECTED (Not Detect.); NG PCR NOT DETECTED (Not Detect.)
[2022-09-22 18:49] LABS: Prolactin 2.7 ng/mL
== END 2022-09-20 14:47 | disposition home or self-care (01) ==
LOC: HO.LAB 14:46
PROVIDERS: PCP Internal Medicine; Visit Provider Obstetrics & Gynecology
DX: N93.9 Abnormal uterine and vaginal bleeding, unspecified (principal); Z20.2 Contact with and (suspected) exposure to infections with a predominantly sexual mode of transmission
CPT/HCPCS: 0353U; 84146; 84443; 84702; 85027

== ENCOUNTER 2022-10-02 11:16 | Outpatient (REF) | payer OTHER, SELFPAY ==
--- NOTE | ~2022-10-02 | US_ITS ---
EXAMINATION: US PELVIS AND TRANSVAGINAL CLINICAL INFORMATION: Abnormal uterine and vaginal bleeding. COMPARISON: None available. TECHNIQUE: Ultrasound of the pelvis is performed using both transabdominal and transvaginal transducers along with Doppler. Transvaginal imaging is performed due to inadequate visualization transabdominally. FINDINGS: UTERUS: The uterus is anteverted and measures 7.4 x 3.5 x 5.1 cm. The double wall endometrial thickness is 6 mm. The uterus is smooth in contour and has normal myometrial echogenicity. Again seen is a tiny 5 x 4 x 4 mm mural fibroid, unchanged from prior. ADNEXA: Both ovaries are visualized. There is normal color flow to the adnexa. There is no ovarian torsion. There is no pelvic ascites or fluid collection. Right ovary measures 2.2 x 1.8 x 1.4 cm for a volume of 2.8 mL and appears normal. Left ovary measures 2.4 x 1.5 x 1.2 cm for a volume of 2.2 mL and appears normal. US/US pelvic and transvaginal IMPRESSION: Tiny unchanged 5 mm mural uterine fibroid. Otherwise, negative study.
== END 2022-10-02 11:17 | disposition home or self-care (01) ==
LOC: HO.US 11:16
PROVIDERS: PCP Internal Medicine; Visit Provider Obstetrics & Gynecology
DX: N93.9 Abnormal uterine and vaginal bleeding, unspecified (principal)
CPT/HCPCS: 76830; 76856

== ENCOUNTER 2022-10-26 13:20 | Outpatient (AMB) | payer BC, SELFPAY ==
--- NOTE | 2022-10-26 13:23 | MHC.OFFVIS ---
Intake Vital Signs 10/26/22 13:24 Height 5 ft 6 in Weight 156 lb BMI 25.2 BP 110/60 Blood Pressure Location Lt brachial Position Sitting Intake Visit Reasons: US Follow up/per dagoberto Allergies No Known Allergies Allergy (Verified 10/26/22 13:28) Is last menstrual period known: Yes Last menstrual period: 08/11/22 [facility] Medical History Hypothyroid Ovarian cyst Surgical History Status post laparoscopic appendectomy Family History Mother Colon cancer Father Skin cancer Maternal Aunt Brain tumor Sister Brain tumor Maternal Aunt Breast cancer Social History Household Members: Spouse Housing: House Alcohol intake: current Alcohol intake frequency: holidays/special occasions only Patient Tobacco Use Status: Former Tobacco user Years Smoked: 15 Substance Use Type: Marijuana service: No Current occupational status: employed 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 hysteroscopy D&C) & the risks were discussed with the patient including but not limited: pain, uterine perforation, bleeding, infection, possible injury to bladder, bowel, ureter, possible need for blood transfusion with all its possible risks. The patient verbalized understanding all questions answered and signed consent. Urine test done in the office was negative The patient was placed into the dorsal lithotomy position; a speculum was inserted in the vagina. Using aseptic technique for the procedure, the cervix was cleansed with Betadine. The anterior lip of the cervix was grasped with a single tooth tenaculum. The uterus was sounded to 7 cm with a 4 mm Pipelle was used. Tissues samples were obtained and placed in formalin, in a patient labeled container and sent to the pathology department. At the end of the procedure, there was minimal bleeding noted The patient tolerated the procedure well and was discharged in good condition with the following instructions: Nothing in the vagina until the bleeding stops. No sex until the bleeding stops, to call if any of the following occurs: fever (>100.4), flu-like symptoms, abdominal pain, heavy bleeding, four smelling vaginal discharge. The patient was instructed to schedule a Follow up appointment in 2 weeks to discuss pathology results of the biopsy and treatment options. This note was generated with a voice recognition program. Some errors may have been overlooked during the review of this note. Sometimes these errors may affect the content or meaning of a given sentence. [id number] Biopsy Results AMB Test Urine AMB Test Urine Negative Last Edit by Susana Gonzalez CMA on 10/26/22 13:37 Results Reviewed Results Reviewed: Laboratory Last Values Tst Clinic Negative 10/26/22 13:36 Assessment & Plan Assessment & Plan Orders: Orders AMB HCG Urine Test Today N93.9 - Abnormal uterine and vaginal bleeding, unspecified Surgical Today N93.9 - Abnormal uterine and vaginal bleeding, unspecified AMB Endometrial Biopsy Today N93.9 - Abnormal uterine and vaginal bleeding, unspecified Coding Level of Care Code Procedure Only Diagnoses CPT Codes Endometrial Biopsy - CPT: 02246-[id number] Biopsy ([id number])
[2022-10-26 13:24] VITALS: BP 110/60; BMI 25.2
== END 2022-10-26 13:50 | disposition home or self-care (01) ==
LOC: HO.HWS 13:20
PROVIDERS: PCP Internal Medicine; Visit Provider Obstetrics & Gynecology
DX: N93.9 Abnormal uterine and vaginal bleeding, unspecified (principal)
CPT/HCPCS: 58100

== ENCOUNTER 2022-10-26 13:20 | Outpatient (REF) | payer BC, SELFPAY | END 2022-10-26 13:21 | disposition home or self-care (01) | LOC: HO.LNP 13:20 | PROVIDERS: PCP Internal Medicine; Visit Provider Obstetrics & Gynecology | DX: N93.9 Abnormal uterine and vaginal bleeding, unspecified (principal) | CPT/HCPCS: 58100; 81025; 88305 ==

== ENCOUNTER 2022-11-08 08:00 | Outpatient (RCR) | payer BC, SELFPAY ==
--- NOTE | 2022-10-11 13:22 | MHC.PT.EP ---
[facility] [place] Office [place] Office [place] Office [address] Jesika Davis [address] [phone] F: [phone] F: [phone] F: [phone] F: [phone] Physical Therapy Plan of Care Date of Evaluation: Date of Surgery: N/A Diagnosis: Effusion, right knee knee effusion, right Assessment: Pt is a pleasant and motivated 46yo F who presents to PT with R knee pain and swelling. Pt presents to PT with current impairments in pain, decreased R knee ROM, swelling, decreased quad strength, and impaired body mechanics. She has a small, localized pocket of swelling/fluid on the medial aspect of inferior patella region of R knee. She is limited functionally by bending, squatting, kneeling, prolonged standing, and repetitive stair climbing. Her signs and symptoms may be consistent with pes anserine bursitis. She is an excellent candidate for skilled PT in order to address current impairments to facilitate return to PLOF. She is recommended to be seen 2x/week for 4 weeks and will be reassessed at that time. 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 Manual therapy to restore motion and function. Therapeutic exercise to improve strength and flexibility. Neuromuscular re-education for posture and balance. Therapeutic activities to return to functional activities of daily living. Electronically signed by: Jocelin Jeffers, PT, DPT Please sign and return to therapist. Thank you for your referral.
--- NOTE | 2022-11-08 09:19 | MHC.PT.DC ---
[facility] [place] Office [place] Office [place] Office [address] Jesika Davis [address] [phone] F: [phone] F: [phone] F: [phone] F: [phone] Physical Therapy Discharge Report Diagnosis: Effusion, right knee knee effusion, right Date of Surgery: N/A Date of Evaluation: 10/11/22 Date of Discharge: 11/08/22 Treatments to Date: 9 Cancellations to Date: No Shows to Date: Discharge Status: Achieved Goals Improved Function Independent with HEP Discharge Summary: Pt has made excellent progress since SOC. She consistently has minimal to no pain. She does have mild residual and localized swelling to R inferior knee however overall she reports her swelling is decreasing. She improved her score on LEFI outcome measure from 59/80 on initial PT evaluation to 71/80 today. She continues to hike and exercise without her brace without increase in pain. She is I and compliant with HEP. She is being D/C from skilled PT at this time. Provided pt with printed, updated copy of HEP and a theraband. She reports no further questions or concerns for PT at this time. Electronically signed by: Jocelin Jeffers, PT, DPT Please sign and return to therapist. Thank you for your referral.
== END 2022-11-08 09:19 | disposition home or self-care (01) ==
LOC: HO.PT 08:00
PROVIDERS: PCP Internal Medicine; Visit Provider Physician Assistant
DX: M25.461 Effusion, right knee (principal)
CPT/HCPCS: 97110; 97140; 97161; 97530

== ENCOUNTER 2022-12-20 08:23 | Outpatient (AMB) | payer BC, SELFPAY ==
[2022-12-20 08:50] VITALS: BP 124/88; BMI 25.0
--- NOTE | 2022-12-20 08:50 | A.OFFVIS_ITS ---
Intake Vital Signs 12/20/22 08:50 Height 5 ft 6 in Weight 155 lb BMI 25.0 BP 124/88 Blood Pressure Location Lt brachial Position Sitting Intake Visit Reasons: Biopsy results/ Follow up Allergies No Known Allergies Allergy (Verified 12/20/22 08:52) HPI HPI Comments History of Present Illness Details The patient is presenting for follow-up to discuss the results of her abnormal uterine bleeding workup and options of treatment. The following workup was done.: H&H= 12.8/30.3 TSH, hCG, GC and chlamydia were negative. Endometrial biopsy pathology showed disordered endometrium with no evidence of hyperplasia and/or malignancy. Co testing was done was negative. Mammogram was BI-RADS 1 in 05/01 Pelvic ultrasound showed the following: The uterus is anteverted and measures 7.4 x 3.5 x 5.1 cm. The double wall endometrial thickness is 6 mm. The uterus is smooth in contour and has normal myometrial echogenicity. Again seen is a tiny 5 x 4 x 4 mm mural fibroid, unchanged from prior. ADNEXA: Both ovaries are visualized. There is normal color flow to the adnexa. There is no ovarian torsion. There is no pelvic ascites or fluid collection. Right ovary measures 2.2 x 1.8 x 1.4 cm for a volume of 2.8 mL and appears normal. Left ovary measures 2.4 x 1.5 x 1.2 cm for a volume of 2.2 mL and appears normal. 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 Sexual orientation: Straight/Heterosexual Gender identity: Female Review of Systems Const All systems reviewed & are unremarkable except as noted in HPI and below Reports as per HPI and Reports no additional complaints GI Reports no additional complaints Reports no additional complaints Physical Exam Vital Signs: Last Vital Signs BP 124/88 12/20/22 08:50 BMI result Body Mass Index 25.0 Assessment & Plan Assessment & Plan (1) Abnormal uterine bleeding (AUB): Code(s): N93.9 - Abnormal uterine and vaginal bleeding, unspecified Plan: Discussed with the patient the results of the work up done and options of treatment including but not limited to BCP's, cyclic Progesterone, Mirena IUD, endometrial ablation and hysterectomy. All pros, cons, risks and benefits of each option were discussed with the patient and the patient decided to go ahead with cyclic progesterone (Prometrium 200 mg p.o. q.d. day 15-24 cyclicly), so a more detailed discussion re: Progesterone treatment including mechanism of action, benefits (regular menses, endometrial protection form unopposed estrogen and reduction in the risk of endometrial hyperplasia and/or cancer ...), risks (Thrombosis, mood changes, weight gain, breast soreness, ? increased breast ca, others). Instructions were given to use a back- up method for contraception since this is not a method control and to schedule a 3 month follow-up appointment; patient verbalized understanding and agreed with the plan. (2) Uterine myoma: Code(s): D25.9 - Leiomyoma of uterus, unspecified Plan: Discussed with the patient the findings on pelvic ultrasound & the risk of myosarcoma; discussed with the patient the options of treatment including expectant management versus hysterectomy; the pros and cons, risks benefits of each approach were discussed with the patient including the fact that in cases of myosarcoma, surgical treatment can lead to early diagnosis and positively affects the prognosis; after further discussion, the patient decided to proceed with expectant management. Will repeat pelvic ultrasound periodically. Instructions given to patient to call in case any of the following occurs: pressure symptoms, abnormal uterine bleeding, pelvic pain; and to schedule a future office follow-up appointment for reassessment and to order a repeat ultr asound . All questions answered, the patient verbalized understanding and agreed with the plan . Medications: New progesterone micronized (Prometrium) Take the pill 1 tablet a day cyclically every month from day 15-24 day 1 being the 1st day of next menstrual cycle 200 mg PO BEDTIME 30 caps 0RF 10 days Coding Level of Care Code Est Pt Level 3 (43297) Diagnoses Abnormal uterine bleeding (AUB) N93.9 Uterine myoma D25.9
== END 2022-12-20 09:16 | disposition home or self-care (01) ==
PROVIDERS: PCP Internal Medicine; Visit Provider Obstetrics & Gynecology
DX: N93.9 Abnormal uterine and vaginal bleeding, unspecified (principal); D25.9 Leiomyoma of uterus, unspecified
CPT/HCPCS: 99213

== ENCOUNTER → 2022-12-20 08:23 | Outpatient (BNVA) | payer BC, SELFPAY | PROVIDERS: PCP Internal Medicine; Visit Provider Obstetrics & Gynecology ==

== ENCOUNTER → 2023-03-14 08:10 | Outpatient (BNVA) | payer BC, SELFPAY | PROVIDERS: PCP Internal Medicine; Visit Provider Obstetrics & Gynecology ==

== ENCOUNTER 2023-03-14 08:12 | Outpatient (AMB) | payer BC, SELFPAY ==
--- NOTE | 2023-03-14 08:21 | A.OFFVIS_ITS ---
Intake Vital Signs 03/14/23 08:23 Height 5 ft 6 in Weight 154 lb 5.177 oz BMI 24.9 BP 118/76 Intake Visit Reasons: 3 month follow up Lap Regulator Required: No Information Interpreted: non-clinical & clinical Accompanied by: Spouse Allergies No Known Allergies Allergy (Verified 03/14/23 08:24) Is last menstrual period known: No HPI HPI Comments History of Present Illness Details The patient is presenting for 3 months Provera follow-up. The patient was unsure how to take the Prometrium and was confused about the timing. Did not take it from day 15-24 last menstrual cycle was on 03/10. 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 q.d. day 15-24 for 3 months and schedule a follow-up appointment in 3 months. All questions answered, the patient verbalized understanding. Medications: Refilled progesterone micronized (Prometrium) Take the pill 1 tablet a day cyclically every month from day 15-24 day 1 being the 1st day of next menstrual cycle 200 mg PO BEDTIME 30 caps 0RF 10 days Coding Level of Care Code Est Pt Level 3 (59643) Diagnoses Abnormal uterine bleeding (AUB) N93.9
[2023-03-14 08:23] VITALS: BP 118/76; BMI 24.9
== END 2023-03-14 08:46 | disposition home or self-care (01) ==
PROVIDERS: PCP Internal Medicine; Visit Provider Obstetrics & Gynecology
DX: N93.9 Abnormal uterine and vaginal bleeding, unspecified (principal)
CPT/HCPCS: 99213

== ENCOUNTER 2023-05-04 07:33 | Outpatient (REF) | payer BC, SELFPAY ==
[2023-05-04 10:53] LABS: MANUAL DIFF FLAG NO
[2023-05-04 11:09] LABS: Basophils Absolute Auto 0.1 X10*3/uL (0.0-0.2); Eosinophils Absolute Auto 0.2 X10*3/uL (0.0-0.4); Eosinophils Percent Auto 3.8 % (0-4); Hematocrit 40.6 % (37.0-47.0); Hemoglobin 13.5 g/dl (12.0-16.0); Imm Gran Abs Auto 0.04 X10*3/uL (0.00-0.03); Imm Gran Pct Auto 0.7 % (0.0-0.4); Lymphocytes Absolute Auto 1.9 X10*3/uL (1.2-4.9); Lymphocytes Percent Auto 32.6 % (20-40); Mean Corpuscular HGB Conc 33.3 g/dl (31.0-35.0); Mean Corpuscular Hemoglobin 30.6 pg (27.0-33.0); Mean Corpuscular Volume 92.1 fL (80.0-98.0); Mean Platelet Volume 9.5 fL (9.4-12.3); Monocytes Absolute Auto 0.6 X10*3/uL (0.1-1.2); Monocytes Percent Auto 10.8 % (2-11); Neutrophils Percent Auto 51.1 % (45-73); Platelet Count 334 X10*3/uL (160-400); Red Blood Count 4.41 X10*6/uL (4.20-5.50); Red Cell Distribution Width 12.6 % (11.0-16.0); White Blood Count 5.8 X10*3/uL (4.8-10.8)
[2023-05-04 11:20] LABS: Alanine Aminotransferase 25 U/L (0-31); Albumin Level 4.5 g/dL (3.5-5.0); Alkaline Phosphatase 68 U/L (39-117); Anion Gap 11 (12-20); Aspartate Amino Transferase 20 U/L (5-31); Bilirubin Total 0.8 mg/dL (0.0-1.0); Blood Urea Nitrogen 12 mg/dL (9-16); Calcium 9.3 mg/dL (8.4-10.2); Carbon Dioxide 26 mmol/L (22-29); Chloride 106 mmol/L (96-108); Cholesterol 218 mg/dL (<200); Estimated Glomerular Filt Rate > 60; Glucose Random 98 mg/dL (60-115); HDL Cholesterol 84 mg/dL (>40); LDL Cholesterol Calculated 116 mg/dL (<100); Potassium 3.7 mmol/L (3.3-5.1); Sodium 139 mmol/L (135-145); Total Protein 7.3 g/dL (6.5-8.0); Triglycerides 90 mg/dL (<150)
[2023-05-04 11:34] LABS: Free T4 (Free Thyroxine) 1.22 ng/dL (0.71-1.85)
[2023-05-04 12:55] LABS: Thyroid Stimulating Hormone 0.58 uIU/mL (0.32-4.0)
[2023-05-05 22:09] LABS: Triiodothyronine T3 Free 3.3 pg/mL (2.3-4.2)
[2023-05-07 16:23] LABS: Thyroid Peroxidase Antibodies <1 IU/mL (<9)
[2023-05-09 15:42] LABS: Thyroid Stimulating Immunoglob <89 % baseline (<140)
== END 2023-05-04 07:34 | disposition home or self-care (01) ==
LOC: HO.10HDL 07:33
PROVIDERS: Visit Provider Physician Assistant
DX: Z00.00 Encounter for general adult medical examination without abnormal findings (principal); E03.8 Other specified hypothyroidism
CPT/HCPCS: 36415; 80053; 80061; 84439; 84443; 84445; 84481; 85025; 86376

== ENCOUNTER 2023-05-10 13:18 | Outpatient (REF) | payer BC, SELFPAY ==
--- NOTE | ~2023-05-10 | MM_ITS ---
EXAMINATION: MM SCREENING DIGITAL BREAST TOMOSYNTHESIS, BILATERAL CLINICAL INFORMATION: Screening. Asymptomatic. COMPARISON: Mammography: This is a baseline mammogram. TECHNIQUE: Digital breast tomosynthesis is performed in both the craniocaudal and mediolateral oblique views along with computer-aided detection (CAD). Synthesized 2D images are generated from the tomosynthesis. FINDINGS: The breasts are heterogeneously dense, which may obscure small masses (ACR BI-RADS breast composition Category c). There are no significant masses, abnormal calcifications, or other abnormalities. MM/MM tomosynthesis screening BI IMPRESSION: No mammographic evidence of malignancy. ASSESSMENT: BI-RADS BI-RADS 1 - Negative RECOMMENDATION: Routine annual mammography screening. 1 year F/U This examination should not preclude the clinical evaluation of a suspicious palpable abnormality. This patient's information was entered into a reminder system with a target due date for their next mammogram.
== END 2023-05-10 13:19 | disposition home or self-care (01) ==
LOC: HO.MAMMO 13:18
PROVIDERS: PCP Physician Assistant; Visit Provider Physician Assistant
DX: Z12.31 Encounter for screening mammogram for malignant neoplasm of breast (principal)
CPT/HCPCS: 77063; 77067

== ENCOUNTER → 2023-05-10 13:30 | Outpatient (BNV) | payer BC, SELFPAY | PROVIDERS: PCP Physician Assistant; Visit Provider Radiology Diagnostic Radiology | DX: Z12.31 Encounter for screening mammogram for malignant neoplasm of breast (principal) | CPT/HCPCS: 77063; 77067 ==

== ENCOUNTER 2023-05-17 13:11 | Outpatient (REF) | payer BC, SELFPAY ==
--- NOTE | ~2023-05-17 | US_ITS ---
EXAMINATION: US THYROID CLINICAL INFORMATION: Hypothyroidism. COMPARISON: None available. TECHNIQUE: Linear transducer ernandez-scale and color Doppler examination with attention to the region of the thyroid. FINDINGS: SIZE: Measurements of the thyroid lobes and nodules are given in sagittal, anteroposterior and transverse dimensions respectively. Right Thyroid Lobe: 4.8 x 1 x 1.8 cm, volume 4.2 mL. Parenchyma: The gland echotexture is homogeneous. Thyroid vascularity is normal. Left Thyroid Lobe: 4.5 x 1.2 x 1.8 cm, volume 4.6 mL. Parenchyma: The gland echotexture is homogeneous. Thyroid vascularity is normal. Isthmus: 0.3 cm in maximum AP dimension. Estimated total number of nodules greater than or equal to 1 cm: 0. Information Management Officer nodules are described as follows: 1. Location: Left inferior. Size: 0.2 x 0.2 x 0.1 cm, volume 0.004 mL. Nodule characteristics: Composition: Cystic(0). ACR TI-RADS total points: 0 ACR TI-RADS category: 1 2. Location: Right mid. Size: 0.3 x 0.3 x 0.1 cm, volume 0.009 mL. Nodule characteristics: Composition: Solid (2). Echogenicity: Hypoechoic (2). Shape: Not taller than wide (0). Margins: Smooth (0). Echogenic Foci: None (0). ACR TI-RADS total points: 4 ACR TI-RADS category: 4 NODES: No lymphadenopathy is seen in the tissue surrounding the thyroid gland. US/US thyroid IMPRESSION: Normal size, echogenicity and vascularity of the thyroid gland. Subcentimeter thyroid nodules, not meeting size criteria for further evaluation. ACR TI-RADS RECOMMENDATION REFERENCE: Ultrasound-guided fine-needle aspiration, followup ultrasound, no further follow up. * TR1 (0 point) and TR2 (2 points): No FNA or follow up. * TR3 (3 points): FNA if more than or equal to 2.5 cm in maximum dimension, followup ultrasound in 1, 3 and 5 years if 1.5 to 2.4 cm in maximum dimension. * TR4 (4-6 points): FNA if more than or equal to 1.5 cm in maximum dimension, followup ultrasound in 1, 2, 3 and 5 years if 1 to 1.4 cm in maximum dimension. * TR5 (more than or equal to 7 points): FNA if more than or equal to 1 cm in maximum dimension, followup ultrasound every year for 5 years if 0.5 to 0.9 cm in maximum dimension. * TR3, TR4 or TR5 nodules that are below the size threshold for followup receive no follow up.
== END 2023-05-17 13:12 | disposition home or self-care (01) ==
LOC: HO.US 13:11
PROVIDERS: PCP Physician Assistant; Visit Provider Physician Assistant
DX: E03.8 Other specified hypothyroidism (principal)
CPT/HCPCS: 76536

== ENCOUNTER 2023-06-13 08:42 | Outpatient (AMB) | payer BC, SELFPAY ==
--- NOTE | 2023-06-13 08:49 | MHC.OFFVIS ---
Intake Vital Signs 06/13/23 08:51 Height 5 ft 6 in Weight 154 lb 5.177 oz BMI 24.9 BP 116/70 Intake Visit Reasons: 3 month med follow up Solid Waste Engineer Required: No Information Interpreted: non-clinical & clinical Accompanied by: Self / Same As Patient Allergies No Known Allergies Allergy (Verified 06/13/23 08:53) HPI HPI Comments History of Present Illness Details Presenting for follow-up 3 months post Prometrium treatment, menstrual cycles are regular and less heavy, the patient is requesting a refill. 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 q.d. day 15-24 refill sent to patient's pharmacy. Instructions given the patient to call in case of abnormal bleeding. All questions answered, the patient verbalized understanding Medications: Refilled progesterone micronized (Prometrium) Take the pill 1 tablet a day cyclically every month from day 15-24 day 1 being the 1st day of next menstrual cycle 200 mg PO BEDTIME 10 days 30 caps 3RF Coding Level of Care Code Est Pt Level 3 (08891) Diagnoses Abnormal uterine bleeding (AUB) N93.9
[2023-06-13 08:51] VITALS: BP 116/70; BMI 24.9
== END 2023-06-13 09:04 | disposition home or self-care (01) ==
LOC: HO.HWS 08:43
PROVIDERS: PCP Internal Medicine; Visit Provider Obstetrics & Gynecology
DX: N93.9 Abnormal uterine and vaginal bleeding, unspecified (principal)
CPT/HCPCS: 99213

== ENCOUNTER → 2023-06-13 08:42 | Outpatient (BNVA) | payer BC, SELFPAY | PROVIDERS: PCP Internal Medicine; Visit Provider Obstetrics & Gynecology ==

== ENCOUNTER 2023-08-31 08:30 | Outpatient (REF) | payer BC, SELFPAY ==
--- NOTE | ~2023-08-31 | XR_ITS ---
EXAMINATION: XR CERVICAL SPINE CLINICAL INFORMATION: Occipital neuralgia. COMPARISON: None available. TECHNIQUE: 4 views of the cervical spine. FINDINGS: Marked degenerative changes with hypertrophic change and loss of disc space height at C5-C6. Mild spondylosis C6-C7 and C7-T1. Straightening of the normal cervical lordosis. XR/XR cervical spine 3V IMPRESSION: Marked degenerative disc disease at C5-C6.
== END 2023-08-31 08:31 | disposition home or self-care (01) ==
LOC: HO.XRAY 08:30
PROVIDERS: PCP Internal Medicine; Visit Provider Internal Medicine
DX: M54.81 Occipital neuralgia (principal)
CPT/HCPCS: 72040

== ENCOUNTER 2023-09-24 08:18 | Outpatient (AMB) | payer BC, SELFPAY ==
--- NOTE | 2023-09-24 08:21 | A.OFFVIS_ITS ---
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 Complaining of amenorrhea over the last 3 months. The patient was taking Provera cyclicly was having regular menstrual cycles except 3 months ago she started having amenorrhea with no other associated symptoms no hirsutism or nipple discharge. Last Pap/HPV was negative in 09/29 Last Mammogram was BI-RADS 1 in 06/02 [facility] Medical History Hypothyroid Ovarian cyst Surgical History Status post laparoscopic appendectomy Family History Mother Colon cancer Father Skin cancer Maternal Aunt Brain tumor Sister Brain tumor Maternal Aunt Breast cancer Social History Household Members: Spouse Housing: House Alcohol intake: current Alcohol intake frequency: holidays/special occasions only Patient Tobacco Use Status: Former Tobacco user Years Smoked: 15 Substance Use Type: Marijuana service: No Current occupational status: employed 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 Sexual orientation: Straight/Heterosexual Gender identity: Female Female Reproductive History Menstrual Date of last menstrual period: 06/01/23 Total pregnancies: 2 Number of Living Children: 0 Ab spontaneous: 2 Date of last pap smear: 09/21/22 Date of Mammogram: 07/09/23 Review of Systems Const All systems reviewed & are unremarkable except as noted in HPI and below Card Reports as per HPI Resp Reports as per HPI GI Reports as per HPI and Reports no additional complaints Reports as per HPI Physical Exam Vital Signs: BMI result Body Mass Index 24.5 Const General: cooperative, healthy appearing and comfortable Chest Chest palpation & inspection: normal inspection of the chest and normal palpation of entire chest wall Breast/axilla inspection: normal inspection of the breasts and normal inspection of the axillae Breast/axilla palpation: normal palpation of the breasts, normal palpation of the axillae and no axillary lymphadenopathy Resp Effort & Inspection: normal respiratory effort Auscultation: clear to auscultation bilaterally Percussion: percussion normal Cardio Palpation: normal PMI Rate: regular rate Rhythm: regular rhythm Heart sounds: no murmurs and no rubs Peripheral pulses: Peripheral pulses 2+ throughout GI Inspection: Yes normal to inspection Palpation (GI): Soft to palpation, nontender, no guarding, not rigid and No hepatosplenomegaly present Percussion: Yes normal to percussion Auscultation: normal bowel sounds Rectal Exam - Female: deferred General: Yes bladder normal to palpation External Female Exam: No lesion Speculum Exam - Vagina: normal appearance of the vagina, normal palpation, normal vaginal discharge and not erythematous Speculum Exam - Cervix: normal appearance of the cervix and normal palpation Bimanual exam- vagina & uterus: normal bimanual exam, normal palpation, uterine size normal, bladder normal to palpation, consistency normal and normal palpation Bimanual Exam- Adnexa, other: normal adnexae, no masses and no tenderness Assessment & Plan Assessment & Plan (1) Well woman exam: Code(s): Z01.419 - Encounter for gynecological examination (general) (routine) without abnormal findings Category: Medical Plan: Cotesting not indicated this year. Instructions given the patient to schedule next screening Mammogram in 06/03. Counseled the patient about the recommended dietary allowance of 1000 mg of Calcium & 600 IU of vitamin D. The patient was instructed to perform monthly self-breast exams and to schedule an annual exam in a year; All questions answered and the patient verbalized understanding. Instructed the patient to schedule annual exam in a year (2) Amenorrhea: Code(s): N91.2 - Amenorrhea, unspecified Category: Medical Plan: Discussed with the patient the possible causes of amenorrhea including but not limited to anovulation, thyroid and prolactin disorders, , end organ p roblems (uterine synechiae), medication side effects and others. The workup includes to start with UPT which was done in the office and was negative , will order TSH, PRL, FSH/LH . Instructions given the patient to schedule a 2 week follow-up appointment. Coding Level of Care Code Est Pt Prev Care 40-64y(97215) Diagnoses Well woman exam Z01.419 Amenorrhea N91.2
[2023-09-24 08:22] VITALS: BP 112/66; BMI 24.5
== END 2023-09-24 08:56 | disposition home or self-care (01) ==
PROVIDERS: PCP Internal Medicine; Visit Provider Obstetrics & Gynecology
DX: Z01.419 Encounter for gynecological examination (general) (routine) without abnormal findings (principal); N91.2 Amenorrhea, unspecified; Z32.02 Encounter for pregnancy test, result negative
CPT/HCPCS: 99396

== ENCOUNTER 2023-09-24 08:18 | Outpatient (REF) | payer BC, SELFPAY ==
[2023-09-24 10:23] LABS: TSH reflex Free T4 0.47 uIU/mL (0.32-4.0)
[2023-09-25 10:02] LABS: Follicle Stimulating Hormone 89.9 mIU/mL; Lutenizing Hormone 40.2 mIU/mL; Prolactin 6.3 ng/mL
== END 2023-09-24 08:19 | disposition home or self-care (01) ==
LOC: HO.LAB 08:18
PROVIDERS: PCP Internal Medicine; Visit Provider Obstetrics & Gynecology
DX: Z32.02 Encounter for pregnancy test, result negative (principal); N91.2 Amenorrhea, unspecified
CPT/HCPCS: 36415; 81025; 83001; 83002; 84146; 84443

== ENCOUNTER 2023-10-08 13:18 | Outpatient (AMB) | payer BC, SELFPAY ==
--- NOTE | 2023-10-08 13:16 | MHC.OFFVIS ---
Intake Visit Reasons: 2 week follow up Allergies No Known Allergies Allergy (Verified 10/08/23 13:16) HPI Comments Details: The patient is scheduled tele health visit for follow-up regarding amenorrhea with cyclic Provera. TSH, prolactin within normal. FSH/LH 89.9/40.2 in the menopausal range. 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 Instructions given the patient to call in case of any vaginal bleeding or any other concerns. All questions answered, the patient verbalized understanding. I spent a total of 20 minutes reviewing the chart, talking to the patient via video and documenting in the medical record. Coding Level of Care Code Tele Est Pt Level 1 (22264) Diagnoses Menopause Z78.0
== END 2023-10-08 14:18 | disposition home or self-care (01) ==
LOC: HO.HWS 13:18
PROVIDERS: PCP Internal Medicine; Visit Provider Obstetrics & Gynecology
DX: Z78.0 Asymptomatic menopausal state (principal)
CPT/HCPCS: 99211

== ENCOUNTER → 2023-10-08 13:18 | Outpatient (BNVA) | payer BC, SELFPAY | PROVIDERS: PCP Internal Medicine; Visit Provider Obstetrics & Gynecology ==

== ENCOUNTER 2023-11-22 07:22 | Outpatient (REF) | payer BC, SELFPAY ==
--- NOTE | ~2023-11-22 | MR_ITS ---
MR CERVICAL SPINE WITHOUT CONTRAST CLINICAL INFORMATION: Cervical disc degeneration. COMPARISON: Cervical spine radiographs August 31, 2023. TECHNIQUE: Multiplanar multisequence MR imaging of the cervical spine obtained without IV contrast. FINDINGS: There is a partially imaged rightward convex scoliotic curvature of the thoracic spine on the localizer series. There is slight retrosubluxation of C5 on C6. Straightening of the cervical lordosis. Modic type I Modic degenerative endplate signal changes at C5-C6. There is no additional bone marrow edema. There are no acute fractures. The craniocervical junction is unremarkable. The partially imaged intracranial compartment is unremarkable. Cervical arterial flow voids are maintained. There are no significant extraspinal soft tissue findings. There are no spinal cord signal changes when accounting for artifact. C2-C3: The disc contour is normal. No central canal stenosis and no foraminal stenosis. C3-C4: Posterior disc contour is normal. Mild bilateral facet arthropathy. No central canal stenosis and no foraminal stenosis. C4-C5: Posterior disc contour is normal. Bilateral facet arthropathy. No central canal stenosis and no foraminal stenosis. C5-C6: Retrosubluxation. Uncovertebral joint spurring and facet arthropathy result in severe bilateral foraminal stenosis. There is no central canal stenosis. C6-C7: Uncovertebral joint spurring and facet arthropathy resulting in severe right and moderate left foraminal stenosis. Slight annular disc bulge without central canal stenosis. C7-T1: Posterior disc contour is normal. No central canal stenosis. Disc osteophyte and facet arthropathy result in mild bilateral foraminal encroachment. MR/MR cervical spine wo con IMPRESSION: Multilevel cervical spondylosis. Spondylitic changes result in severe bilateral C5-C6 and severe right and moderate left C6-C7 foraminal stenosis. There is no severe central canal stenosis within the cervical spine. Modic type I and Modic type II endplate signal changes at C5-C6. Electronically signed by: Milan Krause MD 12/14/2023 11:51 AM EDT
== END 2023-11-22 07:23 | disposition home or self-care (01) ==
LOC: HO.MRI 07:22
PROVIDERS: PCP Internal Medicine; Visit Provider Internal Medicine
DX: M50.30 Other cervical disc degeneration, unspecified cervical region (principal)
CPT/HCPCS: 72141

== ENCOUNTER → 2024-05-15 13:45 | Outpatient (BNV) | payer BC, SELFPAY | PROVIDERS: PCP Physician Assistant; Visit Provider Internal Medicine | DX: Z12.31 Encounter for screening mammogram for malignant neoplasm of breast (principal) | CPT/HCPCS: 77063; 77067 ==

== ENCOUNTER 2024-05-28 08:50 | Outpatient (RCR) | payer BC, SELFPAY | END 2024-06-10 13:52 | disposition home or self-care (01) | LOC: HO.PT 08:50 | PROVIDERS: PCP Physician Assistant; Visit Provider Physician Assistant | DX: M54.81 Occipital neuralgia (principal) | CPT/HCPCS: 97110; 97161 ==

== ENCOUNTER 2024-06-09 07:45 | Outpatient (REF) | payer BC, SELFPAY ==
--- OUTSIDE RECORDS SUMMARY | 2024-06-09 07:48 | XMS_ITS | Data Portability ---
Author Organization [facility] Home Service Address [address] [place] [address] Assessment No assessment recorded. Plan of Treatment Reminders Order Date Submit Date Provider Last Modified By Organization Details Last Modified Time Details Appointments ER Follow up 2024 10:15A LYLE ORTIZ Not available Not available Not available ANNUAL EXAM 2025 09:00A LYLE ORTIZ Not available Not available Not available Lab CMP, serum or plasma 2024 025 [facility], [address] [place] [address], [id number], 05/06/2024 14:05:46 lipid panel, blood 2024 025 [facility], [address] [place] [address], [id number], 05/06/2024 14:05:46 CBC w/ auto diff 2024 025 [facility], [address] [place] [address], [id number], 05/06/2024 14:05:46 vitamin D, 25-hydrox y, total, serum 2024 025 [facility], [address] [place] [address], 16864, 05/06/2024 14:05:46 TSH + free T4, serum 2024 025 [facility], [address] [place] [address], 62435, 05/06/2024 14:05:46 CMP, serum or plasma 2023 024 [facility], [address] [place] [address], 33468, 05/07/2023 11:25:46 CBC w/ auto diff 2023 024 [facility], [address] [place] [address], [id number], 05/07/2023 11:25:47 lipid panel, blood 2023 024 [facility], [address] [place] [address], 14024, 05/07/2023 11:25:46 TSH + free T4, serum 2023 024 [facility], [address] [place] [address], 09490, 05/07/2023 11:25:47 thyroid peroxidas e (tpo) Ab, serum 2023 024 [facility], [address] [place] [address], 57730, 05/08/2023 11:21:44 T3, free, serum or plasma 2023 024 [facility], [address] [place] [address], [id number], 05/02/2023 14:32:59 tsi (thyroid- stimulati ng immunoglo bulin), serum 2023 024 [facility], [address] [place] [address], [id number], 05/10/2023 11:24:36 prolactin , serum 2022 023 [facility], [address] [place] [address], 68085, 04/25/2022 15:00:47 estradiol , serum 2022 023 [facility], [address] [place] [address], 77934, 05/05/2022 13:24:11 progester one, free + total, serum 2022 023 [facility], [address] [place] [address], 79749, 05/03/2022 11:47:56 lh + FSH, serum 2022 023 [facility], [address] [place] [address], 89986, 04/28/2022 11:54:05 testoster one, total, serum 2022 023 [facility], [address] [place] [address], 44912, 05/01/2022 11:33:25 CMP, serum or plasma 2022 023 [facility], [address] [place] [address], 93886, 04/25/2022 15:05:21 CBC w/ auto diff 2022 023 [facility], [address] [place] [address], 71568, 04/25/2022 15:05:21 vitamin D, 25-hydrox y, total, serum 2022 023 [facility], [address] [place] [address], 05401, 06/01/2022 11:36:28 TSH + free T4, serum 2022 023 [facility], [address] [place] [address], 85557, 06/01/2022 11:36:28 iron + TIBC + ferritin, serum 2022 023 [facility], [address] [place] [address], 35084, 04/25/2022 15:05:21 vitamin B12 + folate, serum or blood 2022 023 [facility], [address] [place] [address], 46185, 04/25/2022 15:05:21 Referral physical therapist referral [address] [facility], [address] [place] [address], 236[address], 05/20/2024 11:52:57 physical therapist referral 2023 024 [facility], [address] [place] [address], 90799, 08/24/2023 10:52:34 gynecolog ist referral 2022 023 [facility] iYng Rooney MD, [address] [place] [address], [address], 05/24/2022 08:24:35 Procedures None recorded. Surgeries None recorded. Imaging MRI, cervical spine, w/o contrast - not required Procedure codes: [id number] Reference #: [id number] 31Resolut ion: Completed on 4 at 10:08 am. Call ref #[id number] 131. 2023 024 [facility], [address] [place] [address], 40[address], 09/25/2023 09:04:33 XR, cervical spine, 2 or 3 view 2023 024 [facility], [address] [place], [address], 08/29/2023 09:08:24 US, thyroid 2023 024 [facility], [address] [place], [address], 05/07/2023 09:24:36 MAMMO, screening , digital, bilateral 2022 023 [facility], [address] [place], [address], 05/08/2022 16:42:38 XR, knee, 3 view 2022 023 [facility], [address] [place], [address], 05/09/2022 08:43:08 Medication Orders cyclobenz aprine 10 mg tablet 2023 024 [email or web address] [id number], [address] [facility], [facility], [place], [address], 05/06/2024 13:31:25 Patient TargetsNo targets recorded. Patient Instructions Encounter Date Encounter Id Patient Instructions Last Modified By Organization Details Last Modified Time 09/19/2023 [id number] cervical disc disease: care instructions [email or web address] Not available 09/19/2023 16:23:41 Reason for Referral Improvement Leader Referral for Dy smenorrhea needs routine pap, new changes in menstrual cycle, possible perimenopause Referring Physician: Chiquita Bridges, Internal Medicine, Encounter Date: 04/25/2022 Physical Therapist Referral for Cervico-occipital neuralgia Referring Physician: Missael Medley, Internal Medicine, Encounter Date: 08/15/2023 Physical Therapist Referral for Cervico-occipital neuralgia cervical degeneration and neck pain causing headaches Referring Physician: Chiquita Bridges, Internal Medicine, Encounter Date: 05/06/2024 Results Created Date Observation Date Name Description Value Unit Range Abnormal Flag Note LastModifiedBy Organization Detail LastModifiedTime 05/08/1905/05/2022 MAMMO , scree dwight, digit al, bilat eral No observ ation record ed. [address] [place], [address], 05/08/2022 16:44:07 05/09/19 23 05/05/2022 XR, knee, 3 view No observ ation record ed. [address] [place], [address], 05/10/2022 15:57:21 05/21/19 24 05/17/2023 US, thyro id No observ ation record ed. [email or web address] (Medical Records) [address] [place], [address], 05/23/2023 10:17:03 06/02/19 24 05/10/2023 MAMMO , scree dwight, digit al, bilat eral No observ ation record ed. [email or web address] [place], [address], 06/02/2023 18:33:06 09/17/19 24 08/31/2023 XR, cervi taiwo spine , 2 or 3 view No observ ation record ed. [email or web address] (Medical Records) [address] [place], [address], 09/20/2023 21:44:09 12/14/19 24 2023 MRI, cervi taiwo spine , w/o contr ast No observ ation record ed. [facility] (Medical Records) [address] [place], [address], 12/14/2023 12:35:23 05/22/19 25 05/15/2024 MAMMO , scree dwight, digit al, bilat eral No observ ation record ed. [email or web address] [place], [address], 05/22/2024 18:09:47 Result Notes None recorded. Problems Name Problem SNOMED Code Status Onset Date Resolution Date Notes Provider Name and Address Organization Details Recorded Time Dysmenorr hea 478822088 Active 2022 LYLE PIERRE [address] [place] [address], [address], [facility] 3 14:52:32 Pain of right knee joint 494518180901 100 Active 2022 LYLE PIERRE [address] [place] [address], [address], [facility] 3 14:57:23 Hypothyro idism 60236473 Active 2022 LYLE PIERRE [address] [place] [address], [address], [facility] 3 16:54:40 Cervico-o ccipital neuralgia 17166467 Active 2023 Missael Medley DO [address] [place] [address], [address], [facility] 4 10:55:01 Degenerat ion of cervical intervert ebral disc 58309168 Active 2023 Missael Medley DO [address] [place] [address], [address], [facility] 4 16:22:04 Spinal stenosis in cervical region 28406190 Active 2023 LYLE PIERRE [address] [place] [address], [address], [facility] 4 12:35:57 Closed fracture of right wrist 947635740449 78528 Active 2024 LYLE PIERRE [address] [place] [address], [address], [facility] 5 12:33:40 Posttraum atic stress disorder 87178779 Active 2024 LYLE PIERRE [address] [place], [address], [place] [facility] 5 15:09:33 Depressiv e disorder 97261626 Active [facility] 08:18:22 Problem Notes None recorded. Procedures Surgical History Date Name Laterality Status Provider Name and Address Organization Details Recorded Time 09/25/19 Appendectomy completed LYLE PIERRE [address] [place], [address], [facility] 09/27/2020 14:59:04 Imaging Results Imaging Date Name Status LastModified by Organiz ation Details LastModified Time 05/05/2022 MAMMO, screening, digital, bilateral completed [address] [place], [address], 05/08/2022 16:44:07 05/05/2022 XR, knee, 3 view completed [address] [place], [address], 05/10/2022 15:57:21 05/17/2023 US, thyroid completed [email or web address] (Medical Records) [address] [place], [address], 05/23/2023 10:17:03 05/10/2023 MAMMO, screening, digital, bilateral completed [address] [place], [address], 06/02/2023 18:33:06 08/31/2023 XR, cervical spine, 2 or 3 view completed [address] (Medical Records) [address] [facility] [place], [address], 09/20/2023 21:44:09 2023 MRI, cervical spine, w/o contrast completed [facility] (Medical Records) [address] [facility], [address], 12/14/2023 12:35:23 05/15/2024 MAMMO, screening, digital, bilateral completed [email or web address] [facility] [address] [place] [address] [place], [address], 05/22/2024 18:09:47 Procedure Notes None recorded. Medical Equipment None Reported. Allergies No known drug allergies Medications Name Sig Start Date Stop Date Status Note LastModified by Organization Details LastModified Time cyclobenzap rine 10 mg tablet TAKE 1 TABLET BY MOUTH EVERY DAY PRN 2024 active Not Available Not Available Not Avai lable azithromyci n 250 mg tablet TAKE 2 TABLETS BY MOUTH TODAY, THEN TAKE 1 TABLET DAILY FOR 4 DAYS 04/25 completed Not Available Not Available Not Available hydrocodone 5 mg-acetamin ophen 325 mg tablet 05/17 completed Not Available Not Available Not Available levothyroxi ne 75 mcg tablet TAKE 1 TABLET BY MOUTH EVERY DAY active Not Available Not Available No t Available oxycodone-a cetaminophe n 5 mg-325 mg tablet 09/27 completed Not Available Not Available Not Available alprazolam 0.5 mg tablet Take 1 tablet every day by oral route for 7 days. 2024 active Not Available Not Available Not Avai lable progesteron e micronized 200 mg capsule PLEASE SEE ATTACHED FOR DETAILED DIRECTION S 05/06 completed Not Available Not Available Not Available mupirocin 2 % topical ointment APPLY TO BIOPSY SITE ON RIGHT BUTTOCK DAILY UNTIL HEALED 04/25 completed Not Available Not Available Not Available ibuprofen 600 mg tablet 09/27 completed Not Available Not Available Not Available methylpredn isolone 4 mg tablets in a dose pack as directed 09/27 completed Not Available Not Available Not Available ondansetron 4 mg disintegrat ing tablet 05/17 completed Not Available Not Available Not Available Vitals Date Recorded Body height Body mass index (BMI) Body weight Heart rate Systolic blood pressure Diastolic blood pressure Provider Name and Address Organization Details Last Updated DateTime 3 167.64 cm 25.7 kg/m2 62796.9 8 g 69 /min 124 mm[Hg] 62 mm[Hg] Malika Beltran [facility] 3 14:41:17 Date Recorded Body height Body mass index (BMI) Body weight Heart rate Oxygen saturation Oxygen saturation in Arterial blood by Pulse oximetry Systolic blood pressure Diastolic blood pressure Provider Name and Address Organization Details Last Updated DateTime 4 167.64 cm 27 kg/m2 63423.7 2 g 61 /min 98 % 98 % 118 mm[Hg] 78 mm[Hg] LYLE PIERRE [address] [place], [address], [facility] 4 14:11:10 Date Recorded Body height Body mass index (BMI) Body weight Heart rate Respiratory rate Oxygen saturation Oxygen saturation in Arterial blood by Pulse oximetry Body temperature Systolic blood pressure Diastolic blood pressure Provider Name and Address Organization Details Last Updated DateTime 4 167.64 cm 24.3 kg/m2 30298.3 7 g 54 /min 16 /min 100 % 100 % 98.1 [degF] 122 mm[Hg] 66 mm[Hg] Bud Pete [facility] 4 10:43:35 Date Recorded Body height Body mass index (BMI) Body weight Heart rate Oxygen saturation Oxygen saturation in Arterial blood by Pulse oximetry Systolic blood pressure Diastolic blood pressure Provider Name and Address Organization Details Last Updated DateTime 4 167.64 cm 24.8 kg/m2 59291.1 5 g 90 /min 99 % 99 % 120 mm[Hg] 70 mm[Hg] Mervat Bustamante [facility] 4 16:05:05 Date Recorded Body height Body mass index (BMI) Body weight Heart rate Oxygen saturation Oxygen saturation in Arterial blood by Pulse oximetry Systolic blood pressure Diastolic blood pressure Provider Name and Address Organization Details Last Updated DateTime 5 167.64 cm 25.6 kg/m2 58548.4 7 g 62 /min 98 % 98 % 124 mm[Hg] 82 mm[Hg] Mervat Bustamante [facility] 5 13:31:01 Social History Question Answer Notes LastModified by Organizat ion Details LastModified Time Tobacco Smoking Status Former Smoker Not Available [employer] 02/10/2020 03:36:23 What Was The Date Of Your Most Recent Tobacco Screening? 05/06/2024 [email or web address] Information not available 05/06/2024 Sex: Unknown Functional Status None recorded. Mental Status None recorded. Family History Nothing Reported. Medical History No medical history recorded. Gynecological HistoryNo gynecological history recorded. Obstetrics History GPAL:G 0 P 0 0 0 0 Immunizations Vaccine Type Date Status Note Provider Nam e and Address Organization Details Recorded Time COVID-19, mRNA, LNP-S, PF, 50 mcg/0.5 mL dose 04/15/2020 completed Nelly gonsalez [facility] 04/25/2022 08:20:29 COVID-19, mRNA, LNP-S, PF, 50 mcg/0.5 mL dose 05/14/2020 completed Nelly gonsalez [facility] 04/25/2022 08:20:35 COVID-19, mRNA, LNP-S, PF, 50 mcg/0.5 mL dose 02/04/2021 completed Nelly gonsalez [facility] 04/25/2022 08:20:44 influenza, unspecified formulation 01/23/2022 completed Malika gonsalez [facility] 04/25/2022 14:39:40 Past Encounters Encounter ID Performer Location Encounter Start Date Encounter Closed Date Diagnosis/Indication Diagnosis SNOMED-CT Code Diagnosis ICD10 Code Diagnosis Note [id number] Tiffany Lindsay NP, [address], [place] [address] 08/20/2017 15:19:58 08/20/2017 17:00:55 Amenorrhea 09518552 N91.2 [id number] Tiffany Lindsay NP, [facility] [address], [place] [address] 05/17/2018 13:58:58 05/17/2018 14:22:32 Dysfunction of right eustachian tube 5775436229 248297 H69.91 [id number] LYLE PIERRE [facility] [address], [place] [address] 03/19/2020 08:32:25 03/19/2020 10:11:30 Ganglion cyst 46009226 M67.40 callus vs cyst will call back if still causing problems Depressive disorder 6772 9007 F32.9 stable [id number] LYLE PIERRE [facility] [address] [facility] [address] [address] 09/27/2020 14:42:34 09/27/2020 15:26:27 Retained foreign body 9509232410 60060 Z18.9 will follow up with [facility] lower arm, side of IV site Appendicitis 82258440 K3 5.20 resolved Diarrhea 99340401 R19.7 improving History of appendectomy 822187949 Z90.49 resolved [id number] LYLE PIERRE [facility] [address] [facility] [address] 05/18/2021 09:59:06 05/18/2021 16:34:03 COVID-19 048775615 U07.1 continue to stay out of work Acute sinusitis 82237662 J01.01 start on abxnote written [id number] LYLE PIERRE [facility] [address] [facility] [address] [address] 04/25/2022 14:03:27 04/25/2022 15:44:41 Active or passive immunization 662226619 Z23 advised Adult heal th examination 009250426 Z00.00 BP is excellent today in office Dysmenorrhea 797065841 N 94.4 will check levelsstar lety after she got her COVID-19 booster shot which is known to cause menstrual Pain of ri t knee joint 0368653845 76866 M25.561 will check integrity of her right knee after twist Screening mammography 24 045583 Z12.31 will set up with screening mammogram [id number] LYLE PIERRE [facility] [address] [facility] [address] 05/02/2023 14:02:43 05/02/2023 15:06:52 Adult health examination 291698025 Z00.00 BP is excellent today in office Hypothyroidism 09735677 E03.8 will set up with additional Pain of ri ght knee joint 0468206546 90219 M25.561 PT helped a lot, still does get the pain intermitte ntlyuses brace for activitydi scussed option for US MSK instead of the MRI (insurance denied last year) [id number] Missael Medley [facility] [address] [facility] [address] [address] 08/15/2023 10:26:56 08/15/2023 11:20:27 Depression screening 557437136 Z13.31 Negative Screening Cervico-oc cipital neuralgia 30686138 M54.81 [id number] Missael Medley [facility] [address] [facility] [address] [address] 09/19/2023 15:59:15 09/19/2023 16:29:36 Cervico-occipital neuralgia 12802952 M54.81 Degenerati on of cervical intervertebral disc 32419172 M50.30 [id number] LYLE PIERRE [facility] [address] [facility] [address] 05/06/2024 13:22:18 05/06/2024 14:22:19 Active or passive immunization 123620408 Z23 advised Adult heal th examination 859681422 Z00.00 BP is excellent today in office Cervico-oc cipital neuralgia 06212923 M54.81 needs updated PT referral Degenerati on of cervical intervertebral disc 31697577 M50.30 agreed to PT Health Concerns Section Related Observation LastModified by Organization Detai ls LastModified Time None Recorded Concern Status LastModified by Organization Details LastModified Time None Recorded Advance Directives Directive None Recorded Payers Encounter Date Sequence Insurance Name Policy Number Policy Baugh Covered Member ID Baugh Member ID Guarantor Name 04/25/2022 1 [facility] [id number] Josefina Ty [id number] Josefina Ty 05/02/2023 1 [place] [facility] C4 Imaging JOHN DAY ([facility]) [id number] Marc Ty [id number] Josefina Ty 08/15/2023 1 [place] [facility] ([facility]) [id number] Marc Ty [id number] Josefina Ty 09/19/2023 1 [facility] ([facility] [id number] Marc Ty [id number] Josefina Ty 05/06/2024 1 [facility] ([facility]) [id number] Marc Ty [id number] Josefina Ty Notes Date Note Type Note Provider Name a mn Address Organization Details Recorded Time 3 text/html Annual WellnessReported bypatient.Diet and Nutrition:healthy diet; discussed vitamin and supplement use; discussed portion control; discussed maintaining calcium balance; discussed diet improvement Fracture Risk:no history of fractures; no recent explained fracture; no sudden unexplained fractures; no previous musculoskeletal injuries Physical Activity:exercises on a regular basis; recent increase in physical activity; good physical condition Additional Lifestyle Factors:no tobacco use; drinks alcohol (mild-moderate) Depression Risk:never feels sad, empty, or tearful; no loss of interest in activities; no significant changes in weight; no sleep disturbances or insomnia; no agitation; no loss of energy; no feelings of worthlessness or guilt; no thoughts of suicide; no history of depression; no history of mood disorders Hearing:no loss of hearing Vision:no vision problems right knee pain after twist injury LYLE PIERRE [address] [place] [address], [address], [facility] 04/25/2022 15:10:35 4 text/html Annual WellnessReported bypatient.Diet and Nutrition:healthy diet; discussed vitamin and supplement use; discussed portion control; discussed maintaining calcium balance; discussed diet improvement Fracture Risk:no history of fractures; no recent explained fracture; no sudden unexplained fractures; no previous musculoskeletal injuries Physical Activity:exercises on a regular basis; recent increase in physical activity; good physical condition; discussed weightbearing activities; discussed exercise habits Additional Lifestyle Factors:no tobacco use; drinks alcohol (mild-moderate) Depression Risk:never feels sad, empty, or tearful; no loss of interest in activities; no significant changes in weight; no sleep disturbances or insomnia; no agitation; no loss of energy; no feelings of worthlessness or guilt; no thoughts of suicide; no history of depression; no history of mood disorders Hearing:no loss of hearing Vision:no vision problems LYLE PIERRE [address] [place], [address], [facility] 05/02/2023 14:53:54 4 text/html has had noted pain behind her right ear and upper neck near the skull nuchal linehaving radiating pain across the right scalpnot a typical headachehaving pulsating pain across the scalpno vision changes Missael DenisTaz Medley DO [address] [place], [address], [facility] [place] 08/15/2023 11:00:37 4 text/html here for follow upheadache is doing much better overallhas not had any major headaches and has been not taking the cyclobenz Missael Medley DO [address] [place], [address], [facility] [place] 09/19/2023 16:25:01 5 text/html Annual WellnessReported bypatient.Diet and Nutrition:healthy diet; discussed vitamin and supplement use; discussed portion control; discussed maintaining calcium balance; discussed diet improvement Fracture Risk:no history of fractures; no recent explained fracture; no sudden unexplained fractures; no previous musculoskeletal injuries Physical Activity:exercises on a regular basis; recent increase in physical activity; good physical condition Additional Lifestyle Factors:no tobacco use; drinks alcohol (mild-moderate) Depression Risk:never feels sad, empty, or tearful; no loss of interest in activities; no significant changes in weight; no sleep disturbances or insomnia; no agitation; no loss of energy; no feelings of worthlessness or guilt; no thoughts of suicide; no history of depression; no history of mood disorders Hearing:no loss of hearing Vision:no vision problems the patient reports that she is holding off on the surgery for now, opting for PT and possible injectionsthe patient agreed to referral for [facility] PT who she did with her knee LYLE PIERRE [address] [place], [place], [id number], [facility], [place] [facility] 05/06/2024 14:09:49 OBGyn Episode No OBEpisode recorded.
[2024-06-09 07:58] LABS: MANUAL DIFF FLAG NO
[2024-06-09 08:21] LABS: Basophils Percent Auto 0.6 % (0-2); Eosinophils Absolute Auto 0.6 X10*3/uL (0.0-0.4); Eosinophils Percent Auto 9.4 % (0-4); Hematocrit 39.8 % (37.0-47.0); Hemoglobin 13.2 g/dl (12.0-16.0); Imm Gran Abs Auto 0.04 X10*3/uL (0.00-0.03); Imm Gran Pct Auto 0.6 % (0.0-0.4); Lymphocytes Absolute Auto 2.4 X10*3/uL (1.2-4.9); Lymphocytes Percent Auto 36.8 % (20-40); Mean Corpuscular HGB Conc 33.2 g/dl (31.0-35.0); Mean Corpuscular Hemoglobin 30.7 pg (27.0-33.0); Mean Corpuscular Volume 92.6 fL (80.0-98.0); Mean Platelet Volume 8.7 fL (9.4-12.3); Monocytes Absolute Auto 0.6 X10*3/uL (0.1-1.2); Monocytes Percent Auto 8.8 % (2-11); Neutrophils Absolute Auto 2.9 x10*3/uL (2.0-8.3); Neutrophils Percent Auto 43.8 % (45-73); Platelet Count 361 X10*3/uL (160-400); Red Cell Distribution Width 12.6 % (11.0-16.0); White Blood Count 6.5 X10*3/uL (4.8-10.8)
[2024-06-09 09:02] LABS: Alanine Aminotransferase 65 U/L (0-31); Albumin Level 4.4 g/dL (3.5-5.0); Alkaline Phosphatase 81 U/L (39-117); Anion Gap 14 (12-20); Aspartate Amino Transferase 40 U/L (5-31); Bilirubin Total 0.4 mg/dL (0.0-1.0); Blood Urea Nitrogen 19 mg/dL (9-16); Calcium 9.3 mg/dL (8.4-10.2); Carbon Dioxide 27 mmol/L (22-29); Chloride 105 mmol/L (96-108); Cholesterol 275 mg/dL (<200); Estimated Glomerular Filt Rate > 60; Glucose Random 94 mg/dL (60-115); HDL Cholesterol 66 mg/dL (>40); LDL Cholesterol Calculated 163 mg/dL (<100); Potassium 4.8 mmol/L (3.3-5.1); Sodium 141 mmol/L (135-145); Total Protein 7.5 g/dL (6.5-8.0); Triglycerides 233 mg/dL (<150)
[2024-06-09 09:37] LABS: Free T4 (Free Thyroxine) 1.14 ng/dL (0.71-1.85); Thyroid Stimulating Hormone 0.65 uIU/mL (0.32-4.0); Vitamin D 25-OH Total 30.1 ng/mL (>30)
== END 2024-06-09 07:46 | disposition home or self-care (01) ==
LOC: HO.LAB 07:45
PROVIDERS: PCP Physician Assistant; Visit Provider Physician Assistant
DX: Z00.00 Encounter for general adult medical examination without abnormal findings (principal); Z13.220 Encounter for screening for lipoid disorders; Z13.228 Encounter for screening for other metabolic disorders; Z13.29 Encounter for screening for other suspected endocrine disorder; Z13.0 Encounter for screening for diseases of the blood and blood-forming organs and certain disorders involving the immune mechanism
CPT/HCPCS: 36415; 80053; 80061; 82306; 84439; 84443; 85025

== ENCOUNTER 2024-07-14 14:57 | Outpatient (AMB) | payer BC, SELFPAY ==
[2024-07-14 15:24] VITALS: BP 122/76; PULSE 72; O2SAT 96; BMI 25.5
--- NOTE | 2024-07-14 15:24 | MHC.OFFVIS ---
Vital Signs 07/14/24 15:24 Height 5 ft 6 in Weight 158 lb 4.67 oz BMI 25.5 BP 122/76 Blood Pressure Location Rt brachial Position Sitting Pulse 72 Pulse Source Pulse Oximeter Pulse Oximetry (%) 96 Oxygen Delivery Method Room Air Intake Visit Reasons: Colonoscopy screening Intake Note: NEW PATIENT for initial colo screening. Referred by Dr. Menard. FMHx - Mother Chief Complaint; C/O intermittent/occasional reflux which seems to be primarily diet related per pt. No additional concerns. Pt does report an EGD and a colo approximately 20 years ago via [facility] [place]. Chief Meter Reader Required: No Accompanied by: Self / Same As Patient Allergies No Known Allergies Allergy (Verified 10/08/23 13:16) HPI HPI Colonoscopy screening: Details: 48 year old? female with past medical history of an anxiety, hypothyroidism, history of appendectomy is here today for pre colonoscopy screening.? Patient was sent to us by her zone maintenance technician Dr. Menard.? ? Patient denies any gastrointestinal symptoms in the past or at present, however reports occasional acid reflux depending on what she eats. Patient is trying to control her symptoms with diet..? Patient reports that her mom was diagnosed with CRC in her early 60s, had surgery and chemotherapy currently 10 years cancer free. Denies history of difficulty with sedation or anesthesia in the past.? Negative for history of sleep apnea.? Denies any history of cardiac, renal, pulmonary, or hepatic disease.?? No history of infectious? diseases like hepatitis A, B, C, HIV or tuberculosis.? Patient is not on any anticoagulation [facility] Medical History (Updated 07/17/24 @ 20:17 by Eva Carrasquillo [facility]) Family history of colon cancer in mother Hypothyroid Ovarian cyst Surgical History History of hand surgery Status post laparoscopic appendectomy Family History Mother Colon cancer Father Skin cancer Family hx of ALS (amyotrophic lateral sclerosis) Maternal Aunt Brain tumor Sister Brain tumor Maternal Aunt Breast cancer Social History Household Members: Spouse Housing: House Alcohol intake: current Alcohol intake frequency: holidays/special occasions only Patient Tobacco Use Status: Former Tobacco user Years Smoked: 15 Substance Use Type: Marijuana service: No Current occupational status: employed 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 Sexual orientation: Straight/Heterosexual Gender identity: Female Review of Systems Const Denies weight gain and Denies weight loss ENT Reports no additional complaints, Denies dysphagia and Denies odynophagia Card Reports no additional complaints Resp Reports no additional complaints GI Denies abdominal pain, Denies belching, Denies melena, Denies bloating, Denies change in bowel habits, Denies dysphagia, Denies excessive flatus, Denies dyspepsia, Reports heartburn (Occasionally), Denies diarrhea, Denies loose stools, Denies nausea, Denies odynophagia and Denies vomiting Reports no additional complaints Musc Reports no additional complaints Neuro Reports no additional complaints Psych Reports no additional complaints Endo Reports no additional complaints Physical Exam Vital Signs: Last Vital Signs Pulse 72 07/14/24 15:24 BP 122/76 07/14/24 15:24 Pulse Ox 96 07/14/24 15:24 Oxygen Delivery Method Room Air 07/14/24 15:24 BMI result Body Mass Index 25.5 Const General: healthy appearing, no acute distress and well developed Nutritional Appearance: well nourished Orientation/consciousness: patient oriented x3 Resp Effort & Inspection: normal respiratory effort, able to speak in complete sentences, no tracheal deviation and symmetric chest movement Auscultation: clear to auscultation bilaterally Cardio Rate: regular rate GI Inspection: Yes normal to inspection and No distended Palpation (GI): Soft to palpation, not firm, nontender and No hepatosplenomegaly present Auscultation: normal bowel sounds General: Yes no CVA tenderness Back/Spine/Pelvis Back: no CVA tenderness Skin General skin exam: elasticity normal, turgor normal and dry skin Neuro General: patient oriented x3 Psych Appearance: grossly normal Mental Status: mental status grossly normal Assessment & Plan Assessment & Plan (1) Screen for colon cancer: Code(s): Z12.11 - Encounter for screening for malignant neoplasm of colon (2) Family history of colon cancer in mother: Code(s): Z80.0 - Family history of malignant neoplasm of digestive organs Category: Medical Plan Patient denies any GI, cardiac or respiratory symptoms.? Occasional acid reflux depending on food that she eats. Patient had upper endoscopy and colonoscopy in her early 20s for symptoms of acid reflux and abdominal pain. Trying to avoid the culprits. Denies any issues with anesthesia in the past.? Denies any history of sleep apnea.? No history infectious diseases in the past or present.? Not on any anticoagulation therapy.? Family history of CRC. Patient denies melena, hematochezia, unintentional weight loss or ribbon like stools.? Discussed at length the pre-procedure,? prep, diet & medications as well as what to expect prior, during and after the procedure.?? Stressed the importance of good bowel prep.? Recommended the use of Vaseline or Calmoseptine OTC & baby wipes with bowel movements to promote comfort.? ?Patient verbalizes understanding and agrees to plan of care.? She was given the opportunity to ask questions and all questions answered.? We will see her after the procedure.? Medications: New bisacodyl (Dulcolax (bisacodyl)) take 4 tabs at noon the day before your colonoscopy 20 mg (4 x 5 mg) PO ONCE 1 day 4 tabs 0RF Z12.11 - Encounter for screening for malignant neoplasm of colon polyethylene glycol 3350 (Miralax) As directed by gastroenterology department at [facility] 238 grams PO ONCE 238 grams 0RF Z12.11 - Encounter for screening for malignant neoplasm of colon Coding Level of Care Code New Pt Level 3 (02248) Diagnoses Screen for colon cancer Z12.11 Family history of colon cancer in mother Z80.0 Time Spent (min) 40 Comment 30 minutes spent with patient and additional 10 minutes spent reviewing her records
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
== END 2024-07-14 16:02 | disposition home or self-care (01) ==
LOC: HO.HGI 14:58
PROVIDERS: PCP Physician Assistant; Visit Provider Nurse Practitioner Family
DX: Z01.818 Encounter for other preprocedural examination (principal); Z12.11 Encounter for screening for malignant neoplasm of colon; Z80.0 Family history of malignant neoplasm of digestive organs
CPT/HCPCS: S0285

== ENCOUNTER 2024-10-03 09:37 | Day surgery (SDC) | payer BC, SELFPAY ==
--- OUTSIDE RECORDS SUMMARY | 2024-09-23 12:09 | XMS_ITS | Continuity of Care Document ---
Author Organization [place] - [facility], SHIRA Prater 1[address] Address [address] [place] [address] Care Team Providers Care Credit Operations Specialist Name Role Phone CAILIN SUAREZ Primary Care Provider GARETH WOODS Shaper Set Up Operator Assessment Encounter Date Assessment Date Assessment LastModified by Organization Details LastModified Time 09/19/2024 09/19/2024 A/ status post ORIF left small finger proximal phalanx fracture on June 10, 2024 and nonoperative management left distal radius fracture sustained from a work-related injury on May 30, 2024 P/ 1. Updated OT rx to continue current treatment plan 2. 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 f/u 6 week for range of motion assessment. cee Not available 09/19/2024 09:06:41 Plan of Treatment Reminders Order Date Submit Date Provider Last Modified By Organization Details Last Modified Time Details Appointments RECHECK 15 2024 08:30A M Renée matthews MD Not available Not available Not available Lab None recorde d. Referral occupat ional therapi st referra l - O.T - CONTINU E CURRENT CARE/TR EATMENT 2024 025 leonel oblivar At Physical Therapy [facility], [address], [place], [address], 09/19/2024 09:32:19 Procedures None recorde d. Surgeries None recorde d. Imaging None recorde d. Medication Orders None recorde d. Patient TargetsNo targets recorded. Patient InstructionsNo instructions recorded. Reason for Referral Occupational Therapist Refer ral for Closed fracture of left wrist O.T - CONTINUE CURRENT CARE/TREATMENT Referring Physician: Renée Cochran, Orthopedic Surgery, Encounter Date: 09/19/2024 Problems Name Problem SNOMED Code Status Onset Date Resolution Date Notes Provider Name and Address Organization Details Recorded Time Closed fracture of left wrist 91809012698226 101 Active 2024 Meño Campos PA-C [email or web address], [place], [address] , [facility] 5 08:15:46 Closed fracture of phalanx of little finger 174766967 Active 2024 Not Available Formerly [facility] 5 10:04:45 Closed fracture of proximal phalanx of little finger 476609363 Active 2024 Meño Campos PA-C [address], [place], [address] , [facility] 5 08:16:08 Closed fracture of distal end of radius 78211588 Active 2024 Meño Campos PA-C [email or web address], [place], [address] , [facility] 5 08:16:36 Problem Notes None recorded. Procedures Surgical History Date Name Laterality Status Provider Name and Address Organization Details Recorded Time OPEN REDUCTION INTERNAL FIXATION, PHALANX (FINGER) (SURG) completed Not Available [facility] 06/12/2024 16:38:45 OPEN REDUCTION INTERNAL FIXATION, PHALANX (FINGER) (SURG) completed IRENE CALIX [facility] 06/12/2024 11:43:57 Imaging Results None recorded. Procedure Notes None recorded. Medical Equipment None Reported. Allergies No known drug allergies Medications Name Sig Start Date Stop Date Status Note LastModified by Organization Details LastModified Time cyclobenzap rine 10 mg tablet TAKE 1 TABLET BY MOUTH EVERY DAY NEEDED 2024 active Not Available Not Available Not Avai lable levothyroxi ne 75 mcg tablet TAKE 1 TABLET BY MOUTH EVERY DAY active Not Available Not Available No t Available alprazolam 0.5 mg tablet TAKE 1 TABLET BY MOUTH EVERY DAY FOR 7 DAYS 09/19 completed Not Available Not Available Not Available lidocaine 5 % topical patch APPLY 1 PATCH TOPICALLY DAILY NEEDED FOR MILD PAIN REMOVE AFTER 12 HOURS 09/19 completed Not Available Not Available Not Available oxycodone 5 mg capsule TAKE 1 CAPSULE BY MOUTH EVERY 6 HOURS NEEDED FOR PAIN FOR 3 DAYS 09/19 completed Not Available Not Available Not Available progesteron e micronized 200 mg capsule PLEASE SEE ATTACHED FOR DETAILED DIRECTION S 09/19 completed Not Available Not Available Not Available gabapentin 100 mg capsule TAKE 1 CAPSULE BY MOUTH THREE TIMES A DAY FOR 21 DAYS 09/19 completed Not Available Not Available Not Available oxycodone 5 mg tablet TAKE 1 TABLET EVERY 6 HOURS BY ORAL ROUTE NEEDED, FOR PAIN. 09/19 completed Not Available Not Available Not Available Laxative (bisacodyl) 5 mg tablet,vicente yed release TAKE 4 TABLETS ORALLY AT NOON ONCE THE DAY BEFORE YOUR COLONOSCO PY 09/19 completed Not Available Not Available Not Available Gavilax 17 gram/dose oral powder TAKE 238 GRAMS ONCE DIRECTED BY GASTROENT EROLOGY DEPARTMEN T AT [facility] 09/19 completed Not Available Not Available Not Available Readi-Cat 2 2 % (w/v) oral suspension ADMINISTE R [address] BARIUM SUSPENSIO N 30 MINUTES BEFORE SCAN AND 150 ML IMMEDIATE LY PRIOR TO SCAN 09/19 completed Not Available Not Available Not Available Vitals Date Recorded Body height Body mass index (BMI) Body weight Provider Name and Address Organization Details Last Updated DateTime 09/19/2024 167.64 cm 25 kg/m2 29718.82 g WARD CALIX [place] - [facility] 09/19/2024 08:44:01 Social History None recorded. Functional Status None recorded. Mental Status None recorded. Family History Nothing Reported. Medical History No medical history recorded. Gynecological HistoryNo gynecological history recorded. Obstetrics History GPAL:G 0 P 0 0 0 0 Past Encounters Encounter ID Performer Location Encounter Start Date Encounter Closed Date Diagnosis/Indication Diagnosis SNOMED-CT Code Diagnosis ICD10 Code Diagnosis Note [id number] MD SHIRA Kang Birnie [address] [place] [address] 09/19/2024 08:37:05 09/19/2024 09:31:59 Closed fracture of left wrist [id number] 1854556 S62.102S S62.102D S62.102A Closed fra cture of distal end of radius 90072851 S52.502D Closed fra cture of phalanx of little finger [id number] S62.607A Health Concerns Section Related Observation LastModified by Organization Detai ls LastModified Time None Recorded Concern Status LastModified by Organization Details LastModified Time None Recorded Payers Encounter Date Sequence Insurance Name Policy Number Policy Baugh Covered Member ID Baugh Member ID Guarantor Name 09/19/2024 TRAVELERS Unknown Rere Ty Notes Date Note Type Note Provider Name and Address Organization Details Recorded Time 09/19/2024 text/html DX:status post ORIF left small finger proximal phalanx fracture on June 10, 2024 and nonoperative management left distal radius fracture sustained from a work-related injury on May 30, 2024 HPI: 48-year-old RHD female here for reevaluation. 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 She is in therapy making gradual gains in motion for her left small finger. OT BIW. She is using a bunch of orthoses constructed by OT. 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
[2024-10-01 13:59] VITALS: BMI 25.5
--- NOTE | 2024-10-02 10:25 | P.CONAN_ITS ---
Documented by User: Karen Hogue NP 10/02/24 10:28 HPI - Anesthesia Eval Consult details Narrative: 48yo F for Colonoscopy PMFSH Active Problems Active Problems: All Active Problems Family history of colon cancer in mother (Acute) Menopause (Acute) Amenorrhea (Acute) Well woman exam (Acute) Uterine myoma (Acute) Abnormal uterine bleeding (AUB) (Acute) Knee effusion, right (Acute) Status post laparoscopic appendectomy (Acute) Past Medical History Medical History (Updated 07/17/24 @ 20:17 by Eva Carrasquillo [facility]) Family history of colon cancer in mother Hypothyroid Ovarian cyst Family History Family History Mother Colon cancer Father Skin cancer Family hx of ALS (amyotrophic lateral sclerosis) Maternal Aunt Brain tumor Sister Brain tumor Maternal Aunt Breast cancer Surgical History Surgical History (Updated 10/03/24 @ 10:46 by Lorraine Goff RN) H/O hand surgery Status post laparoscopic appendectomy Social History Social History Household Members: Spouse Housing: House Alcohol intake: current Alcohol intake frequency: holidays/special occasions only Patient Tobacco Use Status: Former Tobacco user Years Smoked: 15 Use of substances other than those prescribed or required for medical reasons: No Substance Use Type: Marijuana Are you DNR?: No Advance Directives: No Advance Directives Information Provided: Yes : No Poor oral hygiene: No service: No Current occupational status: employed 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 Sexual orientation: Straight/Heterosexual Gender identity: Female Meds Allergies Allergy/AdvReac Type Severity Reaction Status Date / Time No Known Allergies Allergy Verified 10/08/23 13:16 Home Medications ?Medication ?Instructions ?Recorded ?Confirmed ?Last Taken ?Type cetirizine 5 mg-pseudoephedrine ER 1 tab PO DAILY PRN Allergy Symptoms 09/14/20 09/27/20 Unknown History 120 mg tablet,extended release,12hr (Zyrtec-D) levothyroxine 75 mcg tablet 75 mcg PO DAILY 08/11/22 10/03/24 History cyclobenzaprine 10 mg tablet 10 mg PO BEDTIME 10/08/23 Unknown History alprazolam 0.25 mg tablet (Xanax) 0.25 mg PO BEDTIME P CLOVIS 07/14/24 Unknown History Exam Height,Weight and Vital Signs: Height 5 ft 6 in Weight 71.668 kg Assessment and Plan Assessment Anesthesia Assessment: Chart Reviewed Documented by User: Becca Beck MD 10/03/24 11:05 [facility] Past Medical History Medical History (Updated 07/17/24 @ 20:17 by Eva Carrasquillo [facility]) Family history of colon cancer in mother Hypothyroid Ovarian cyst Family History Family History Mother Colon cancer Father Skin cancer Family hx of ALS (amyotrophic lateral sclerosis) Maternal Aunt Brain tumor Sister Brain tumor Maternal Aunt Breast cancer Family history of problems with anesthesia: No Surgical History Surgical History (Updated 10/03/24 @ 10:46 by Lorraine Goff RN) H/O hand surgery Status post laparoscopic appendectomy History of Problems with Anesthesia: No Social History Social History Household Members: Spouse Housing: House Alcohol intake: current Alcohol intake frequency: holidays/special occasions only Patient Tobacco Use Status: Former Tobacco user Years Smoked: 15 Use of substances other than those prescribed or required for medical reasons: No Substance Use Type: Marijuana Are you DNR?: No Advance Directives: No Advance Directives Information Provided: Yes : No Poor oral hygiene: No service: No Current occupational status: employed 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 Sexual orientation: Straight/Heterosexual Gender identity: Female Meds Allergies Allergy/AdvReac Type Severity Reaction Status Date / Time No Known Allergies Allergy Verified 10/08/23 13:16 Home Medications ?Medication ?Instructions ?Recorded ?Confirmed ?Last Taken ?Type cetirizine 5 mg-pseudoephedrine ER 1 tab PO DAILY PRN Allergy Symptoms 09/14/20 09/27/20 Unknown History 120 mg tablet,extended release,12hr (Zyrtec-D) levothyroxine 75 mcg tablet 75 mcg PO DAILY 08/11/22 10/03/24 History cyclobenzaprine 10 mg tablet 10 mg PO BEDTIME 10/08/23 Unknown History alprazolam 0.25 mg tablet (Xanax) 0.25 mg PO BEDTIME P RN 07/14/24 Unknown History Exam Airway Mallampati Class: II TM Dist: >3cm Neck ROM: Full Heart: rrr Lungs: cta Assessment and Plan Assessment Anesthesia Assessment: Anesthesia Plan Discussed Final Anesthetic Review Family History of Problems with Anesthesia: No History of Problems with Anesthesia: No NPO: Yes ASA Class: II Final Preanesthetic Review: No Changes in Pt Med Stat, Meds/Allgs Chart Reviewed and Consent Obtained/Reviewed Patient Risk: Low Procedure Risk: Low Anesthetic Plan Anesthetic Plan: MAC: Disposition: Standard PACU
[2024-10-03 10:35] VITALS: BMI 24.8
--- NOTE | 2024-10-03 10:44 | MHC.SHP ---
Pre-Procedural Eval Section A - 24 Hr Update-Section A only Date of Service: 10/03/24 Section B - Complete if H&P > 30 days Chief Complaint: hx of malignant neoplasm,screening Relevant Family History (Specify if Yes): Yes Relevant Social History: Other (specify) Present Medications: see Short Stay Collaborative assessment Medical History: Significant History (Family history of colon cancer in mother Hypothyroid Ovarian cyst) History of Previous Operations: Relevant previous surgery/procedure and date(s) ( History of hand surgery Status post laparoscopic appendectomy) Allergies: Allergies Allergy/AdvReac Type Severity Reaction Status Date / Time No Known Allergies Allergy Verified 10/08/23 13:16 Review of Systems Sugical H&P ROS: Negative: Constitution, Cardiovascular, Respiratory, Neurological, Psychiatric, Hem-Onc, Allergic/Immunologic, Gastrointestinal, Genitourinary, Musculoskeletal, Integumentary, Endocrine and Eyes/Ears/Nose/Throat Exam Surgical H&P Exam: Normal: HEENT, Normal: Heart, Normal: Lungs, Normal: Extremities, Normal: Abdomen, Normal: Skin and Normal: Neurological Plan Diagnosis/Plan: Unchanged I have reviewed the history and physical and performed a pertinent physical examination on my patient. No changes have occurred unless specified. Time Spent With Patient Time: Total time managing care of this patient today ____ minutes.
[2024-10-03 10:52] LABS: Urine Pregnancy NEGATIVE (NEGATIVE)
[2024-10-03 10:53] LABS: UPreg QC Valid YES
[2024-10-03 10:58] VITALS: BP 152/96; PULSE 62; RESP 16; TEMP 36.5; O2SAT 98
[2024-10-03] MEDS: Lactated Ringers 1,000 ML 100 ML IVCONT (11:06)
--- NOTE | 2024-10-03 12:07 | HO.OPN-COLON ---
Colonoscopy Operative Note Operative Note Date of Service: 10/03/24 Narrative: Operative Information Procedure Description: Colonoscopy Indication: screening, FH of CRC in mother Anesthesia: MAC COLONOSCOPY Instrument: Olympus variable stiffness pediatric scope 190L Colonoscopy Monitoring: Vital signs and clinical assessment, continuous EKG monitoring, Pulse oximetry, Carbon Dioxide monitoring and blood pressure monitoring were done throughout the procedure. Colon withdrawal time was 12 minutes. Procedure: The patient was placed in the left lateral decubitis position and pre-procedure medications were administered. After a digital rectal examination of the ano-rectum, the video colonoscope was inserted into the rectum and advanced through the colon to the cecum/TI. The colonoscope was slowly withdrawn in a retrograde panoramic fashion and the colon mucosa was carefully examined including a retroflexed view of the rectum. Findings and interventions are described below. Procedure Difficulty: moderate Findings: Terminal Ileum-normal Cecum:normal right sided retroflexion- normal Ascending Colon: normal Transverse Colon -normal Descending Colon:normal Sigmoid Colon: normal Rectum: Retroflexion with small internal hemorrhoids seen, grade I Anorectum - normal Intervention: none Colon preparation: [place] Bowel Preparation Scale Right colon; 2 Transverse colon: 2 Left colon; 1-2 (0 = Unprepared colon segment with mucosa not seen due to solid stool that cannot be cleared. 1 = Portion of mucosa of the colon segment seen, but other areas of the colon segment not well seen due to staining, residual stool and/or opaque liquid. 2 = Minor amount of residual staining, small fragments of stool and/or opaque liquid, but mucosa of colon segment seen well. 3 = Entire mucosa of colon segment seen well with no residual staining, small fragments of stool or opaque liquid) Impression and Post Procedure Diagnosis: internal hemorrhoids Plan: High fiber diet leaflet Avoid straining at stool, epsom salts and sitz bath, anusol supps or cream Repeat Colonoscopy in 5 years due to fair prep on left or earlier if clinically indicated Above findings were reviewed with the patient and relevant handouts were provided if indicated.
[2024-10-03 12:16] VITALS: BP 106/61; PULSE 59; RESP 16; TEMP 36.1; O2SAT 97
[2024-10-03 12:31] VITALS: BP 106/63; PULSE 51; RESP 16; O2SAT 97
[2024-10-03 12:57] VITALS: BP 124/72; PULSE 67; RESP 16; TEMP 36.1; O2SAT 100
== END 2024-10-03 13:15 | disposition home or self-care (01) ==
PROVIDERS: Nurse Practitioner; PCP Physician Assistant; Visit Provider Internal Medicine Gastroenterology
PROC: 0DJD8ZZ Inspection of Lower Intestinal Tract, Via Natural or Artificial Opening Endoscopic (ICD-10-PCS; CPT 45378; principal; 2024-10-03 11:20)
DX: Z12.11 Encounter for screening for malignant neoplasm of colon (principal); K64.0 First degree hemorrhoids; Z80.0 Family history of malignant neoplasm of digestive organs; E03.9 Hypothyroidism, unspecified; F12.90 Cannabis use, unspecified, uncomplicated; Z90.49 Acquired absence of other specified parts of digestive tract; Z87.891 Personal history of nicotine dependence; Z79.899 Other long term (current) drug therapy
CPT/HCPCS: 45378; 81025; J2003; J2704

== ENCOUNTER → 2024-10-03 09:37 | Outpatient (BNV) | payer BC, SELFPAY | PROVIDERS: PCP Physician Assistant; Visit Provider Internal Medicine Gastroenterology | DX: Z12.11 Encounter for screening for malignant neoplasm of colon (principal); Z80.0 Family history of malignant neoplasm of digestive organs; K64.0 First degree hemorrhoids | CPT/HCPCS: 45378 ==